=== PATIENT | male | born 1935 | race African-American/Black ===

== ENCOUNTER 2017-08-13 15:09 | Inpatient (IN) | payer MEDICARE, MEDICAID ==
[~2017-08-13] VITALS: Ht 167.6 cm; Wt 84.8 kg
[2017-08-13 16:29] LABS: CHLORIDE 109 mEq/L (98-107)
[2017-08-13 16:30] LABS: HEMATOCRIT. 35.4 % (42.0-52.0); HEMOGLOBIN. 11.6 g/dL (14.0-18.0); MEAN CORPUSCULAR HEMOGLOBIN 27.9 pg (28.0-32.0); MEAN CORPUSCULAR VOLUME 85.1 fL (80.0-94.0); MEAN PLATELET VOLUME 8.2 fl (7.4-10.4); PLATELET 265 x1000/uL (130-400); RED BLOOD CELL COUNT 4.16 mill/uL (4.7-6.1); RED CELL DISTRIBUTION WIDTH 15.4 % (11.6-14.6)
[2017-08-13 17:15] LABS: PLATELET ESTIMATE NORMAL
[2017-08-13] MEDS ORDERED: AMPICILLIN SOD/SULBACTAM NA 3 G in SODIUM CHLORIDE 0.9% 100 ML IV SCH (17:15)
[2017-08-13] MEDS ORDERED: MAGNESIUM HYDROXIDE 400MG/5ML 30ML UDC PO PRN (20:30)
[2017-08-13] MEDS ORDERED: ACETAMINOPHEN 325MG TABLET PO PRN (20:30)
[2017-08-13] MEDS ORDERED: CLONIDINE 0.1MG TABLET PO PRN (20:30)
[2017-08-13] MEDS ORDERED: VANCOMYCIN 1 G PREMIX 200 ML IV SCH (20:30)
[2017-08-13] MEDS ORDERED: DIPHENHYDRAMINE 50MG/ML VIAL IV PRN (20:30)
[2017-08-13] MEDS ORDERED: ONDANSETRON HCL 4MG/2ML VIAL IV PRN (20:30)
[2017-08-13] MEDS ORDERED: MAGNESIUM/ALUMINUM HYDROXIDE/SIMETHICONE 30ML UDC PO PRN (20:30)
[2017-08-13] MEDS ORDERED: TEMAZEPAM 15MG CAPSULE PO PRN (21:00)
[2017-08-13 21:57] VITALS: BP 135/60
[2017-08-13] MEDS ORDERED: PIPERACILLIN/TAZ 3.375G PREMIX 50 ML IV SCH (22:00)
[2017-08-13] MEDS: SODIUM CHLORIDE 0.9% INJ 3ML FLUSH IVF SCH (22:56)
[2017-08-13] MEDS: ENOXAPARIN 40MG/0.4ML SYR SUBCUT SCH (22:56)
[2017-08-13] MEDS ORDERED: VANCOMYCIN 1,750 MG in DEXT 5% WATER 250 ML IV NR (23:00)
[2017-08-14 00:17] VITALS: BP 126/78
[2017-08-14] MEDS ORDERED: HYDROCODONE/ACETAMINOPHEN 5/325MG TABLET PO PRN (01:30)
[2017-08-14 04:18] VITALS: BP 120/43
[2017-08-14] MEDS: SODIUM CHLORIDE 0.9% INJ 3ML FLUSH IVF SCH ×2 (05:27→15:12)
[2017-08-14] MEDS: CEFAZOLIN 500 MG in DEXTROSE 5% WATER 50 ML IV SCH ×2 (07:29→15:12)
[2017-08-14 08:00] VITALS: BP 126/78
[2017-08-14] MEDS: TAMSULOSIN HCL 0.4MG SR CAPSULE PO SCH (08:22)
[2017-08-14] MEDS: AMLODIPINE 10MG TABLET PO SCH (08:22)
[2017-08-14] MEDS: CHOLECALCIFEROL (D3) 1000 UNIT TABLET PO SCH (08:22)
[2017-08-14] MEDS: CARVEDILOL 3.125 MG TABLET PO SCH ×2 (08:23→23:04)
[2017-08-14] MEDS: ASPIRIN 81MG EC TABLET PO SCH (08:23)
[2017-08-14] MEDS: MULTIVITAMINS,THER W-MINERALS TABLET PO SCH (08:23)
[2017-08-14] MEDS ORDERED: PREGABALIN 50 MG CAPSULE PO SCH (09:00)
[2017-08-14 12:00] VITALS: BP 140/45
[2017-08-14 16:00] VITALS: BP 138/57
[2017-08-14] MEDS ORDERED: VANCOMYCIN 1 G PREMIX 200 ML IV SCH (16:00)
[2017-08-14 20:00] VITALS: BP 130/50
[2017-08-14] MEDS ORDERED: ATORVASTATIN CALCIUM 40MG TABLET PO SCH (21:00)
[2017-08-14] MEDS ORDERED: FAMOTIDINE 20MG TABLET PO SCH (21:00)
[2017-08-14] MEDS: PREGABALIN 50 MG CAPSULE PO SCH (23:03)
[2017-08-14] MEDS: ENOXAPARIN 40MG/0.4ML SYR SUBCUT SCH (23:05)
[2017-08-15] VITALS: BP 107/43
[2017-08-15 04:00] VITALS: BP_SYST 118; BP_SYST 130; BP_DIAS 37; BP_DIAS 44
[2017-08-15] MEDS: SODIUM CHLORIDE 0.9% INJ 3ML FLUSH IVF SCH (06:19)
[2017-08-15] MEDS: PREGABALIN 50 MG CAPSULE PO SCH ×2 (06:19→13:51)
[2017-08-15 08:00] VITALS: BP 145/62
[2017-08-15] MEDS: TAMSULOSIN HCL 0.4MG SR CAPSULE PO SCH (10:22)
[2017-08-15] MEDS: CHOLECALCIFEROL (D3) 1000 UNIT TABLET PO SCH (10:22)
[2017-08-15] MEDS: CARVEDILOL 3.125 MG TABLET PO SCH (10:23)
[2017-08-15] MEDS: ASPIRIN 81MG EC TABLET PO SCH (10:23)
[2017-08-15] MEDS: MULTIVITAMINS,THER W-MINERALS TABLET PO SCH (10:23)
[2017-08-15] MEDS: AMLODIPINE 10MG TABLET PO SCH (10:23)
[2017-08-15 12:00] VITALS: BP 142/56
== END 2017-08-15 18:29 | DRG 637 ==
LOC: ER 15:09 → 6EST 17:20 → ENRESERV 19:06
PROVIDERS: ADMIT Internal Medicine; ATTEND Internal Medicine
DX: E11.621 Type 2 diabetes mellitus with foot ulcer (principal); E43 Unspecified severe protein-calorie malnutrition; I13.0 Hypertensive heart and chronic kidney disease with heart failure and stage 1 through stage 4 chronic kidney disease, or unspecified chronic kidney disease; L97.429 Non-pressure chronic ulcer of left heel and midfoot with unspecified severity; E11.22 Type 2 diabetes mellitus with diabetic chronic kidney disease; E11.40 Type 2 diabetes mellitus with diabetic neuropathy, unspecified; I25.10 Atherosclerotic heart disease of native coronary artery without angina pectoris; I50.9 Heart failure, unspecified; K21.9 Gastro-esophageal reflux disease without esophagitis; E11.51 Type 2 diabetes mellitus with diabetic peripheral angiopathy without gangrene; M77.30 Calcaneal spur, unspecified foot; J44.9 Chronic obstructive pulmonary disease, unspecified; N18.9 Chronic kidney disease, unspecified; G30.9 Alzheimer's disease, unspecified; F02.80 Dementia in other diseases classified elsewhere, unspecified severity, without behavioral disturbance, psychotic disturbance, mood disturbance, and anxiety; Z86.718 Personal history of other venous thrombosis and embolism; Z86.73 Personal history of transient ischemic attack (TIA), and cerebral infarction without residual deficits; Z68.30 Body mass index [BMI] 30.0-30.9, adult
CPT/HCPCS: 36415; 73630; 80053; 83605; 85025; 87040; 93005; 93923; J0295; J0690; J1650; J2543; J3370; J7040; J7050; J7060

== ENCOUNTER 2018-01-18 16:02 | Inpatient (IN) | payer MEDICARE, MEDICAID ==
[~2018-01-18] VITALS: Ht 175.3 cm; Wt 86.6 kg
[~2018-01-18 16:02] MED LIST: ACET-2178 PO; AMLO10TA4 PO; ASPI-1158 PO; ATOR80TA PO; CHOL100044 PO; CIME800T PO; COR3 PO; DIPH25CA83 PO; ENOX40DI8 SQ; ESCI20TA PO; FAMO20TA8 PO; HYDR-4001 PO; MAG30ORA PO; MELA3TAB PO; MOM PO; MULT-230 PO; PREG100C PO; TAMS-11 PO
[2018-01-18] MEDS ORDERED: KETOROLAC 30MG/ML VIAL IV STA (16:26)
[2018-01-18 16:57] LABS: BG BASE EXCESS -2.7 mmol/L (-2.0-2.0); BG CARBOXYHEMOGLOBIN 1.4 % (0.5-1.5); BG DEOXYHEMOGLOBIN 11.2 % (0.0-5.0); BG FRACTION INSPIRED OXYGEN 36; BG HCO3 ACT 20.3 mmol/L (22.0-26.0); BG METHEMOGLOBIN 0.1 % (0.0-1.5); BG OXYGEN SATURATION 88.6 % (92.0-98.5); BG OXYHEMOGLOBIN 87.3 % (94.0-97.0); BG PCO2 28.4 mmHg (35.0-45.0); BG PH 7.473 (7.350-7.450); BG PO2 58.4 mmHg (75.0-100.0); BG SAMPLE SITE RIGHT BRACHIAL; BG TOTAL HEMOGLOBIN 8.2 g/dL (12.0-18.0); BG VENT MODE NASAL CANNULA
[2018-01-18 17:09] LABS: HEMATOCRIT. 24.7 % (42.0-52.0); HEMOGLOBIN. 8.2 g/dL (14.0-18.0); MEAN CORPUSCULAR HEMOGLOBIN 29.3 pg (28.0-32.0); MEAN CORPUSCULAR VOLUME 88.8 fL (80.0-94.0); MEAN PLATELET VOLUME 7.9 fl (7.4-10.4); PLATELET 461 x1000/uL (130-400); RED BLOOD CELL COUNT 2.79 mill/uL (4.7-6.1); RED CELL DISTRIBUTION WIDTH 16.4 % (11.6-14.6)
[2018-01-18 17:16] LABS: CHLORIDE 107 mEq/L (98-107)
[2018-01-18 18:01] LABS: NUCLEATED RED BLOOD CELLS 2 /100 WBC; PLATELET ESTIMATE INCREASED
[2018-01-18] MEDS ORDERED: ENOXAPARIN 60MG/0.6ML SYR SUBCUT ONE (18:15)
[2018-01-18 22:30] VITALS: BP 100/60
[2018-01-19] VITALS (11 sets, daily range): BP systolic 101–115; BP diastolic 47–75
[2018-01-19] MEDS ORDERED: DOCU-138 PO (06:09)
[2018-01-19] MEDS ORDERED: ZINC220T PO (06:09)
[2018-01-19] MEDS ORDERED: LORA2TAB95 PO (06:09)
[2018-01-19] MEDS ORDERED: ONDA4TAB5 PO (06:09)
[2018-01-19] MEDS ORDERED: CLON0.1T PO (06:09)
[2018-01-19] MEDS ORDERED: DORZ10DR12 EACHEYE (06:09)
[2018-01-19 07:20] LABS: BASOPHILS % 0.6 % (0.0-2.0); EOSINOPHILS % 1.8 % (0.0-5.0); HEMATOCRIT. 23.3 % (42.0-52.0); HEMOGLOBIN. 7.6 g/dL (14.0-18.0); LYMPHOCYTES % 25.6 % (20.0-50.0); MEAN CORPUSCULAR HEMOGLOBIN 28.8 pg (28.0-32.0); MEAN CORPUSCULAR VOLUME 88.8 fL (80.0-94.0); MONOCYTES % 10.4 % (2.0-8.0); NEUTROPHILS % 61.6 % (40.0-76.0); PLATELET 431 x1000/uL (130-400); RED BLOOD CELL COUNT 2.62 mill/uL (4.7-6.1); RED CELL DISTRIBUTION WIDTH 16.4 % (11.6-14.6)
[2018-01-19 09:01] LABS: CREATINE KINASE MB FRACTION 22.5 ng/mL (0.5-3.6)
[2018-01-19 14:43] LABS: CREATINE KINASE MB FRACTION 21.9 ng/mL (0.5-3.6)
[2018-01-19] MEDS ORDERED: IPRATROPIUM/ALBUTEROL 0.5-3(2.5)MG/3ML NEB HHN PRN (17:45)
[2018-01-19] MEDS ORDERED: FUROSEMIDE 40MG/4ML VIAL IVP NR (18:00)
[2018-01-19] MEDS ORDERED: IPRATROPIUM/ALBUTEROL 0.5-3(2.5)MG/3ML NEB INH PRN (20:45)
[2018-01-19] MEDS ORDERED: ONDANSETRON HCL 4MG/2ML INJ IV PRN (20:45)
[2018-01-19] MEDS ORDERED: ACETAMINOPHEN 325MG TABLET PO PRN (20:45)
[2018-01-19 22:21] LABS: CLARITY URINE CLOUDY (CLEAR); COLOR URINE YELLOW (YELLOW); KETONES URINE TRACE (NEGATIVE); LEUKOCYTE ESTERASE URINE 3+ (NEGATIVE); NITRITE URINE POSITIVE (NEGATIVE); OCCULT BLOOD URINE NEGATIVE (NEGATIVE); PROTEIN URINE NEGATIVE (NEGATIVE); SPECIFIC GRAVITY URINE 1.017 (1.005-1.030); UROBILINOGEN URINE 0.2 E.U./dL (0.2-1.0)
[2018-01-19 22:36] LABS: *AMPHETAMINES SCREEN URINE NEGATIVE (NEGATIVE)
[2018-01-19 22:38] LABS: *BARBITURATES SCREEN URINE NEGATIVE (NEGATIVE); *BENZODIAZEPINES SCREEN URINE NEGATIVE (NEGATIVE); *COCAINE SCREEN URINE NEGATIVE (NEGATIVE); CANNABINOID URINE SCREEN NEGATIVE (NEGATIVE); METHADONE URINE SCREEN NEGATIVE (NEGATIVE); OPIATES URINE SCREEN NEGATIVE (NEGATIVE); PHENCYCLIDINE URINE SCREEN NEGATIVE (NEGATIVE)
[2018-01-19] MEDS: HYDROCODONE/ACETAMINOPHEN 5/325MG TABLET PO PRN (23:35)
[2018-01-19] MEDS: LEVOFLOXACIN 750MG PREMIX 150 ML IV SCH (23:36)
[2018-01-19] MEDS: PREGABALIN 75MG CAPSULE PO SCH (23:36)
[2018-01-19] MEDS: TAMSULOSIN HCL 0.4MG SR CAPSULE PO SCH (23:39)
[2018-01-20] VITALS (11 sets, daily range): BP systolic 97–127; BP diastolic 52–76
[2018-01-20 00:04] LABS: INR 1.1; PROTHROMBIN TIME 11.3 sec (9.1-11.1)
[2018-01-20] MEDS: IPRATROPIUM/ALBUTEROL 0.5-3(2.5)MG/3ML NEB HHN SCH ×4 (00:36→20:59)
[2018-01-20 07:41] LABS: CHLORIDE 110 mEq/L (98-107)
[2018-01-20 07:55] LABS: CREATINE KINASE 202 IU/L (39-308)
[2018-01-20 07:58] LABS: BASOPHILS % 0.5 % (0.0-2.0); CREATINE KINASE MB FRACTION 19.1 ng/mL (0.5-3.6); EOSINOPHILS % 4.2 % (0.0-5.0); HEMATOCRIT. 23.4 % (42.0-52.0); HEMOGLOBIN. 7.6 g/dL (14.0-18.0); LYMPHOCYTES % 20.3 % (20.0-50.0); MEAN CORPUSCULAR HEMOGLOBIN 28.6 pg (28.0-32.0); MEAN CORPUSCULAR VOLUME 88.8 fL (80.0-94.0); MEAN PLATELET VOLUME 7.8 fl (7.4-10.4); MONOCYTES % 9.5 % (2.0-8.0); NEUTROPHILS % 65.5 % (40.0-76.0); PLATELET 430 x1000/uL (130-400); RED BLOOD CELL COUNT 2.64 mill/uL (4.7-6.1); RED CELL DISTRIBUTION WIDTH 16.3 % (11.6-14.6)
[2018-01-20] MEDS ORDERED: FUROSEMIDE 40MG/4ML VIAL IVP SCH (11:30)
[2018-01-20] MEDS ORDERED: REGADENOSON 0.4 MG/5 ML IV ONE (14:16)
[2018-01-20] MEDS: TAMSULOSIN HCL 0.4MG SR CAPSULE PO SCH (15:26)
[2018-01-20] MEDS: ASPIRIN 81MG TABLET PO SCH (15:26)
[2018-01-20] MEDS: PREGABALIN 75MG CAPSULE PO SCH ×2 (15:26→21:44)
[2018-01-20] MEDS: ATORVASTATIN CALCIUM 40MG TABLET PO SCH (21:44)
[2018-01-21] VITALS (14 sets, daily range): BP systolic 93–130; BP diastolic 50–80
[2018-01-21] MEDS: IPRATROPIUM/ALBUTEROL 0.5-3(2.5)MG/3ML NEB HHN SCH ×4 (01:30→20:43)
[2018-01-21 07:42] LABS: BASOPHILS % 0.5 % (0.0-2.0); EOSINOPHILS % 5.6 % (0.0-5.0); HEMATOCRIT. 22.9 % (42.0-52.0); HEMOGLOBIN. 7.4 g/dL (14.0-18.0); MEAN CORPUSCULAR HEMOGLOBIN 28.5 pg (28.0-32.0); MEAN CORPUSCULAR VOLUME 88.2 fL (80.0-94.0); MONOCYTES % 7.6 % (2.0-8.0); NEUTROPHILS % 68.3 % (40.0-76.0); PLATELET 413 x1000/uL (130-400); RED CELL DISTRIBUTION WIDTH 16.5 % (11.6-14.6)
[2018-01-21] MEDS: PREGABALIN 75MG CAPSULE PO SCH ×2 (08:08→20:30)
[2018-01-21] MEDS: ASPIRIN 81MG TABLET PO SCH (08:08)
[2018-01-21] MEDS: FERROUS SULFATE 325MG TABLET PO SCH ×3 (08:08→18:07)
[2018-01-21] MEDS: PANTOPRAZOLE SODIUM 40 MG/VIAL IV SCH (08:08)
[2018-01-21] MEDS: TAMSULOSIN HCL 0.4MG SR CAPSULE PO SCH (08:09)
[2018-01-21 08:46] LABS: CHLORIDE 109 mEq/L (98-107)
[2018-01-21] MEDS ORDERED: IRON SUCROSE COMPLEX 100 MG/5 ML ML IV SCH (10:15)
[2018-01-21] MEDS ORDERED: SODIUM BICARBONATE 4% (2.4MEQ) 5ML VIAL IV ONE (15:41)
[2018-01-21] MEDS ORDERED: LIDOCAINE HCL 1% 20ML VIAL (Pyxis) INJ ONE (15:42)
[2018-01-21] MEDS ORDERED: IOHEXOL-300 100 ML BOTTLE ONE (15:42)
[2018-01-21] MEDS: ATORVASTATIN CALCIUM 40MG TABLET PO SCH (20:30)
[2018-01-21] MEDS: LEVOFLOXACIN 750MG PREMIX 150 ML IV SCH (20:31)
[2018-01-22] VITALS (9 sets, daily range): BP systolic 97–131; BP diastolic 58–65
[2018-01-22] MEDS: IPRATROPIUM/ALBUTEROL 0.5-3(2.5)MG/3ML NEB HHN SCH ×4 (01:43→20:43)
[2018-01-22] MEDS: HYDROCODONE/ACETAMINOPHEN 5/325MG TABLET PO PRN ×2 (02:45→21:17)
[2018-01-22 07:24] LABS: CHLORIDE 108 mEq/L (98-107)
[2018-01-22 07:32] LABS: BASOPHILS % 0.2 % (0.0-2.0); EOSINOPHILS % 3.1 % (0.0-5.0); HEMATOCRIT. 27.5 % (42.0-52.0); HEMOGLOBIN. 8.9 g/dL (14.0-18.0); LYMPHOCYTES % 9.5 % (20.0-50.0); MEAN CORPUSCULAR HEMOGLOBIN 28.6 pg (28.0-32.0); MEAN CORPUSCULAR VOLUME 88.5 fL (80.0-94.0); MONOCYTES % 8.2 % (2.0-8.0); PLATELET 413 x1000/uL (130-400); RED BLOOD CELL COUNT 3.11 mill/uL (4.7-6.1); RED CELL DISTRIBUTION WIDTH 16.4 % (11.6-14.6)
[2018-01-22] MEDS: IRON SUCROSE COMPLEX 100 MG/5 ML ML IV SCH (08:24)
[2018-01-22] MEDS: PANTOPRAZOLE SODIUM 40 MG/VIAL IV SCH (08:24)
[2018-01-22] MEDS: FERROUS SULFATE 325MG TABLET PO SCH ×3 (08:26→17:20)
[2018-01-22] MEDS: TAMSULOSIN HCL 0.4MG SR CAPSULE PO SCH (08:27)
[2018-01-22] MEDS: ASPIRIN 81MG TABLET PO SCH (08:27)
[2018-01-22] MEDS: PREGABALIN 75MG CAPSULE PO SCH ×2 (08:27→21:17)
[2018-01-22] MEDS: ATORVASTATIN CALCIUM 40MG TABLET PO SCH (21:17)
[2018-01-23] VITALS (7 sets, daily range): BP systolic 94–116; BP diastolic 46–66
[2018-01-23] MEDS: IPRATROPIUM/ALBUTEROL 0.5-3(2.5)MG/3ML NEB HHN SCH ×3 (01:42→11:41)
[2018-01-23 05:42] LABS: HEMATOCRIT 24.7 % (42.0-52.0); HEMOGLOBIN 8.1 g/dL (14.0-18.0); MEAN CORPUSCULAR HEMOGLOBIN 29.1 pg (28.0-32.0); MEAN CORPUSCULAR VOLUME 88.9 fL (80.0-94.0); PLATELET 354 x1000/uL (130-400); RED BLOOD CELL COUNT 2.77 mill/uL (4.7-6.1); RED CELL DISTRIBUTION WIDTH 16.8 % (11.6-14.6)
[2018-01-23 05:52] LABS: TOTAL IRON BINDING CAPACITY 289 ug/dL (250-450)
[2018-01-23] MEDS: PANTOPRAZOLE SODIUM 40 MG/VIAL IV SCH (09:00)
[2018-01-23] MEDS: FERROUS SULFATE 325MG TABLET PO SCH (09:06)
[2018-01-23] MEDS: TAMSULOSIN HCL 0.4MG SR CAPSULE PO SCH (09:07)
[2018-01-23] MEDS: ASPIRIN 81MG TABLET PO SCH (09:07)
[2018-01-23] MEDS: PREGABALIN 75MG CAPSULE PO SCH (09:07)
[2018-01-23] MEDS: IRON SUCROSE COMPLEX 100 MG/5 ML ML IV SCH (09:08)
== END 2018-01-23 16:49 | DRG 252 ==
LOC: ER 16:02 → 3WST 18:35 → ENRESERV 20:55
PROVIDERS: ADMIT Internal Medicine; ATTEND Internal Medicine
PROC: 30233N1 Transfusion of Nonautologous Red Blood Cells into Peripheral Vein, Percutaneous Approach (ICD-10-PCS; principal; 2018-01-21)
PROC: 06H03DZ Insertion of Intraluminal Device into Inferior Vena Cava, Percutaneous Approach (ICD-10-PCS; 2018-01-21)
PROC: B549ZZZ Ultrasonography of Inferior Vena Cava (ICD-10-PCS; 2018-01-21)
PROC: B5191ZZ Fluoroscopy of Inferior Vena Cava using Low Osmolar Contrast (ICD-10-PCS; 2018-01-21)
DX: I21.4 Non-ST elevation (NSTEMI) myocardial infarction (principal); J96.01 Acute respiratory failure with hypoxia; J18.9 Pneumonia, unspecified organism; E44.0 Moderate protein-calorie malnutrition; E87.2 Acidosis; I69.354 Hemiplegia and hemiparesis following cerebral infarction affecting left non-dominant side; I82.502 Chronic embolism and thrombosis of unspecified deep veins of left lower extremity; J90 Pleural effusion, not elsewhere classified; K92.2 Gastrointestinal hemorrhage, unspecified; D50.9 Iron deficiency anemia, unspecified; E11.22 Type 2 diabetes mellitus with diabetic chronic kidney disease; E11.51 Type 2 diabetes mellitus with diabetic peripheral angiopathy without gangrene; E78.00 Pure hypercholesterolemia, unspecified; E78.5 Hyperlipidemia, unspecified; F03.90 Unspecified dementia, unspecified severity, without behavioral disturbance, psychotic disturbance, mood disturbance, and anxiety; F41.9 Anxiety disorder, unspecified; H40.9 Unspecified glaucoma; R91.8 Other nonspecific abnormal finding of lung field; D47.3 Essential (hemorrhagic) thrombocythemia; N18.3 Chronic kidney disease, stage 3 (moderate); R82.71 Bacteriuria; I70.0 Atherosclerosis of aorta; H91.90 Unspecified hearing loss, unspecified ear; N40.0 Benign prostatic hyperplasia without lower urinary tract symptoms; I12.9 Hypertensive chronic kidney disease with stage 1 through stage 4 chronic kidney disease, or unspecified chronic kidney disease; I34.0 Nonrheumatic mitral (valve) insufficiency; J44.9 Chronic obstructive pulmonary disease, unspecified; K21.9 Gastro-esophageal reflux disease without esophagitis; Z85.118 Personal history of other malignant neoplasm of bronchus and lung; Z88.0 Allergy status to penicillin; Z79.82 Long term (current) use of aspirin; Z79.899 Other long term (current) drug therapy; Z68.28 Body mass index [BMI] 28.0-28.9, adult
CPT/HCPCS: 36415; 36600; 37191; 71045; 76700; 78452; 80048; 80061; 80305; 82375; 82550; 82553; 82728; 82805; 82962; 83540; 83550; 83605; 83735; 83880; 84443; 84484; 85027; 85044; 86850; 86900; 86920; 87804; 93005; 93017; 93306; 93970; 94640; 96372; 96374; 99285; A9500; C1769; C1880; C9113; J1644; J1650; J1885; J1940; J1956; J2785; J3490; J7050; J7620; P9016; Q9967

== ENCOUNTER 2018-01-27 13:43 | Inpatient (IN) | payer MEDICARE, MEDICAID ==
[~2018-01-27] VITALS: Ht 177.8 cm; Wt 88.0 kg
[~2018-01-27 13:43] MED LIST changes: +CLON0.1T PO; +DOCU-138 PO; +DORZ10DR12 EACHEYE; +LORA2TAB95 PO; +ONDA4TAB5 PO; +ZINC220T PO
[2018-01-27] MEDS ORDERED: SODIUM CHLORIDE 0.9% 1000ML BAG (SEPSIS BOLUS) IV ONE (14:45)
[2018-01-27 16:07] LABS: BASOPHILS % 0.1 % (0.0-2.0); EOSINOPHILS % 1.3 % (0.0-5.0); HEMATOCRIT. 30.6 % (42.0-52.0); HEMOGLOBIN. 9.7 g/dL (14.0-18.0); LYMPHOCYTES % 7.7 % (20.0-50.0); MEAN CORPUSCULAR HEMOGLOBIN 28.2 pg (28.0-32.0); MEAN CORPUSCULAR VOLUME 89.2 fL (80.0-94.0); MEAN PLATELET VOLUME 8.1 fl (7.4-10.4); MONOCYTES % 7.4 % (2.0-8.0); NEUTROPHILS % 83.5 % (40.0-76.0); PLATELET 375 x1000/uL (130-400); RED BLOOD CELL COUNT 3.43 mill/uL (4.7-6.1); RED CELL DISTRIBUTION WIDTH 18.1 % (11.6-14.6)
[2018-01-27 16:13] LABS: INR 1.1; PROTHROMBIN TIME 11.2 sec (9.1-11.1)
[2018-01-27 16:14] LABS: CHLORIDE 107 mEq/L (98-107)
[2018-01-27] MEDS ORDERED: LEVOFLOXACIN 750MG PREMIX 150 ML IV ONE (17:00)
[2018-01-27 17:26] LABS: CLARITY URINE TURBID (CLEAR); COLOR URINE YELLOW (YELLOW); KETONES URINE NEGATIVE (NEGATIVE); LEUKOCYTE ESTERASE URINE 3+ (NEGATIVE); NITRITE URINE POSITIVE (NEGATIVE); OCCULT BLOOD URINE TRACE (NEGATIVE); PROTEIN URINE NEGATIVE (NEGATIVE); SPECIFIC GRAVITY URINE 1.012 (1.005-1.030)
[2018-01-27] MEDS ORDERED: ACETAMINOPHEN 325MG TABLET PO PRN (22:15)
[2018-01-27] MEDS ORDERED: CLONIDINE 0.1MG TABLET PO PRN (23:46)
[2018-01-28] VITALS (16 sets, daily range): BP systolic 92–142; BP diastolic 36–86
[2018-01-28] MEDS: ENOXAPARIN 100MG/ML SYR SUBCUT SCH ×2 (04:00→17:07)
[2018-01-28 11:32] LABS: BASOPHILS % 0.1 % (0.0-2.0); EOSINOPHILS % 1.8 % (0.0-5.0); HEMATOCRIT. 26.6 % (42.0-52.0); HEMOGLOBIN. 8.3 g/dL (14.0-18.0); LYMPHOCYTES % 11.4 % (20.0-50.0); MEAN CORPUSCULAR HEMOGLOBIN 28.5 pg (28.0-32.0); MEAN CORPUSCULAR VOLUME 91.5 fL (80.0-94.0); MEAN PLATELET VOLUME 8.6 fl (7.4-10.4); MONOCYTES % 7.1 % (2.0-8.0); NEUTROPHILS % 79.6 % (40.0-76.0); PLATELET 253 x1000/uL (130-400)
[2018-01-28 12:04] LABS: CHLORIDE 113 mEq/L (98-107)
[2018-01-28] MEDS ORDERED: CLONIDINE 0.1MG TABLET PO SCH (15:15)
[2018-01-28] MEDS: DORZOLAM/TIMOLOL 2.23/0.68% OPHTH DROPS 10ML EACHEYE SCH (17:08)
[2018-01-28] MEDS: DEXT 5%/0.9% NACL 1,000 ML IV SCH (17:08)
[2018-01-28] MEDS: ATORVASTATIN CALCIUM 40MG TABLET PO SCH (21:00)
[2018-01-28] MEDS: TAMSULOSIN HCL 0.4MG SR CAPSULE PO SCH (21:00)
[2018-01-28] MEDS: MEROPENEM 1,000 MG in SODIUM CHLORIDE 0.9% 100 ML IV SCH (22:00)
[2018-01-28] MEDS: VANCOMYCIN 1500MG in DEXTROSE 5% WATER 250ML IV NR (22:39)
[2018-01-29] VITALS (11 sets, daily range): BP systolic 88–127; BP diastolic 41–94
[2018-01-29] MEDS: ENOXAPARIN 100MG/ML SYR SUBCUT SCH ×2 (04:27→16:47)
[2018-01-29] MEDS: DEXT 5%/0.9% NACL 1,000 ML IV SCH ×2 (04:33→21:00)
[2018-01-29] MEDS: MEROPENEM 1,000 MG in SODIUM CHLORIDE 0.9% 100 ML IV SCH ×2 (08:24→20:55)
[2018-01-29] MEDS: DORZOLAM/TIMOLOL 2.23/0.68% OPHTH DROPS 10ML EACHEYE SCH ×2 (08:25→16:47)
[2018-01-29 12:11] LABS: CREATINE KINASE MB FRACTION 8.9 ng/mL (0.5-3.6)
[2018-01-29 12:17] LABS: HEMATOCRIT. 26.6 % (42.0-52.0); HEMOGLOBIN. 8.3 g/dL (14.0-18.0); MEAN CORPUSCULAR HEMOGLOBIN 28.7 pg (28.0-32.0); MEAN CORPUSCULAR VOLUME 92.1 fL (80.0-94.0); MEAN PLATELET VOLUME 8.9 fl (7.4-10.4); PLATELET 218 x1000/uL (130-400); RED BLOOD CELL COUNT 2.89 mill/uL (4.7-6.1); RED CELL DISTRIBUTION WIDTH 18.3 % (11.6-14.6)
[2018-01-29 12:43] LABS: CHLORIDE 117 mEq/L (98-107)
[2018-01-29] MEDS: ASPIRIN 81MG TABLET PO SCH (13:21)
[2018-01-29] MEDS: VANCOMYCIN 1 G PREMIX 200 ML IV SCH (13:22)
[2018-01-29] MEDS ORDERED: LEVOFLOXACIN 750MG PREMIX 150 ML IV SCH (17:00)
[2018-01-29] MEDS: ATORVASTATIN CALCIUM 40MG TABLET PO SCH (20:55)
[2018-01-29] MEDS: TAMSULOSIN HCL 0.4MG SR CAPSULE PO SCH (21:00)
[2018-01-29] MEDS: VANCOMYCIN 1500MG in DEXTROSE 5% WATER 250ML IV NR (21:52)
[2018-01-30] VITALS (13 sets, daily range): BP systolic 104–143; BP diastolic 39–68
[2018-01-30 02:25] LABS: PLATELET ESTIMATE NORMAL
[2018-01-30] MEDS: ENOXAPARIN 100MG/ML SYR SUBCUT SCH ×2 (04:29→16:47)
[2018-01-30] MEDS: VANCOMYCIN 1 G PREMIX 200 ML IV SCH (08:17)
[2018-01-30] MEDS: DORZOLAM/TIMOLOL 2.23/0.68% OPHTH DROPS 10ML EACHEYE SCH ×2 (08:17→16:50)
[2018-01-30] MEDS: ASPIRIN 81MG TABLET PO SCH (08:18)
[2018-01-30] MEDS: MEROPENEM 1,000 MG in SODIUM CHLORIDE 0.9% 100 ML IV SCH ×2 (09:54→22:16)
[2018-01-30 11:28] LABS: BASOPHILS % 0.2 % (0.0-2.0); EOSINOPHILS % 1.5 % (0.0-5.0); HEMATOCRIT. 24.9 % (42.0-52.0); LYMPHOCYTES % 15.1 % (20.0-50.0); MEAN CORPUSCULAR HEMOGLOBIN 28.7 pg (28.0-32.0); MEAN CORPUSCULAR VOLUME 90.2 fL (80.0-94.0); MEAN PLATELET VOLUME 8.7 fl (7.4-10.4); NEUTROPHILS % 76.2 % (40.0-76.0); PLATELET 214 x1000/uL (130-400); RED BLOOD CELL COUNT 2.77 mill/uL (4.7-6.1); RED CELL DISTRIBUTION WIDTH 18.1 % (11.6-14.6)
[2018-01-30 11:58] LABS: CHLORIDE 118 mEq/L (98-107)
[2018-01-30] MEDS: ATORVASTATIN CALCIUM 40MG TABLET PO SCH (22:16)
[2018-01-30] MEDS: TAMSULOSIN HCL 0.4MG SR CAPSULE PO SCH (22:16)
[2018-01-31] VITALS (13 sets, daily range): BP systolic 115–137; BP diastolic 45–92
[2018-01-31] MEDS: DEXT 5%/0.9% NACL 1,000 ML IV SCH ×2 (04:27→21:59)
[2018-01-31] MEDS: ENOXAPARIN 100MG/ML SYR SUBCUT SCH ×2 (04:27→17:01)
[2018-01-31] MEDS: ACETYLCYSTEINE 100MG/ML 10% VIAL 4ML INH SCH (07:37)
[2018-01-31] MEDS: MEROPENEM 1,000 MG in SODIUM CHLORIDE 0.9% 100 ML IV SCH ×2 (08:13→21:59)
[2018-01-31] MEDS: ASPIRIN 81MG TABLET PO SCH (08:14)
[2018-01-31] MEDS: DORZOLAM/TIMOLOL 2.23/0.68% OPHTH DROPS 10ML EACHEYE SCH ×2 (08:14→17:05)
[2018-01-31 17:03] LABS: INR 1.1; PARTIAL THROMBOPLASTIN TIME 44.8 sec (23.4-31.0); PROTHROMBIN TIME 11.4 sec (9.1-11.1)
[2018-01-31] MEDS: BLOOD SUGAR DIAGNOSTIC STRIP TEST SCH (17:18)
[2018-01-31] MEDS: IPRATROPIUM/ALBUTEROL 0.5-3(2.5)MG/3ML NEB HHN SCH (20:40)
[2018-01-31] MEDS: ATORVASTATIN CALCIUM 40MG TABLET PO SCH (22:00)
[2018-01-31] MEDS: TAMSULOSIN HCL 0.4MG SR CAPSULE PO SCH (22:00)
[2018-02-01] VITALS (12 sets, daily range): BP systolic 96–152; BP diastolic 24–100
[2018-02-01] MEDS: IPRATROPIUM/ALBUTEROL 0.5-3(2.5)MG/3ML NEB HHN SCH ×5 (00:45→20:29)
[2018-02-01] MEDS: ENOXAPARIN 100MG/ML SYR SUBCUT SCH ×2 (04:38→16:00)
[2018-02-01] MEDS: ASPIRIN 81MG TABLET PO SCH (09:00)
[2018-02-01] MEDS: DORZOLAM/TIMOLOL 2.23/0.68% OPHTH DROPS 10ML EACHEYE SCH ×2 (09:00→17:00)
[2018-02-01] MEDS: BLOOD SUGAR DIAGNOSTIC STRIP TEST SCH ×2 (09:21→17:00)
[2018-02-01] MEDS: PANTOPRAZOLE SODIUM 40 MG/VIAL IV SCH (09:24)
[2018-02-01] MEDS: MEROPENEM 1,000 MG in SODIUM CHLORIDE 0.9% 100 ML IV SCH ×2 (09:56→21:13)
[2018-02-01] MEDS: DEXT 5%/0.9% NACL 1,000 ML IV SCH (14:24)
[2018-02-01] MEDS: ACETYLCYSTEINE 100MG/ML 10% VIAL 4ML INH SCH (15:22)
[2018-02-01 15:32] LABS: BASOPHILS % 0.5 % (0.0-2.0); EOSINOPHILS % 3.5 % (0.0-5.0); HEMATOCRIT. 27.1 % (42.0-52.0); HEMOGLOBIN. 8.3 g/dL (14.0-18.0); LYMPHOCYTES % 20.9 % (20.0-50.0); MEAN CORPUSCULAR HEMOGLOBIN 27.9 pg (28.0-32.0); MEAN CORPUSCULAR VOLUME 90.4 fL (80.0-94.0); MEAN PLATELET VOLUME 9.6 fl (7.4-10.4); MONOCYTES % 9.1 % (2.0-8.0); PLATELET 211 x1000/uL (130-400); RED CELL DISTRIBUTION WIDTH 18.1 % (11.6-14.6)
[2018-02-01 16:52] LABS: T4 FREE 1.34 ng/dL (0.76-1.46)
[2018-02-01] MEDS: ATORVASTATIN CALCIUM 40MG TABLET PO SCH ×2 (21:00→21:13)
[2018-02-01] MEDS: TAMSULOSIN HCL 0.4MG SR CAPSULE PO SCH ×2 (21:00→21:14)
[2018-02-02] VITALS (12 sets, daily range): BP systolic 105–145; BP diastolic 35–92
[2018-02-02] MEDS: IPRATROPIUM/ALBUTEROL 0.5-3(2.5)MG/3ML NEB HHN SCH ×8 (01:02→23:55)
[2018-02-02] MEDS: ACETYLCYSTEINE 100MG/ML 10% VIAL 4ML INH SCH ×4 (01:02→23:55)
[2018-02-02] MEDS: ENOXAPARIN 100MG/ML SYR SUBCUT SCH (04:00)
[2018-02-02 06:28] LABS: BASOPHILS % 0.3 % (0.0-2.0); EOSINOPHILS % 3.1 % (0.0-5.0); HEMATOCRIT. 26.8 % (42.0-52.0); HEMOGLOBIN. 8.5 g/dL (14.0-18.0); LYMPHOCYTES % 24.2 % (20.0-50.0); MEAN CORPUSCULAR HEMOGLOBIN 28.3 pg (28.0-32.0); MEAN CORPUSCULAR VOLUME 89.7 fL (80.0-94.0); MEAN PLATELET VOLUME 9.4 fl (7.4-10.4); MONOCYTES % 8.5 % (2.0-8.0); NEUTROPHILS % 63.9 % (40.0-76.0); PLATELET 245 x1000/uL (130-400); RED BLOOD CELL COUNT 2.99 mill/uL (4.7-6.1); RED CELL DISTRIBUTION WIDTH 17.7 % (11.6-14.6)
[2018-02-02 07:11] LABS: INR 1.2; PARTIAL THROMBOPLASTIN TIME 37.2 sec (23.4-31.0); PROTHROMBIN TIME 11.7 sec (9.1-11.1)
[2018-02-02] MEDS: MEROPENEM 1,000 MG in SODIUM CHLORIDE 0.9% 100 ML IV SCH ×2 (08:03→21:30)
[2018-02-02] MEDS: PANTOPRAZOLE SODIUM 40 MG/VIAL IV SCH (08:03)
[2018-02-02] MEDS: ASPIRIN 81MG TABLET PO SCH (08:07)
[2018-02-02] MEDS: DORZOLAM/TIMOLOL 2.23/0.68% OPHTH DROPS 10ML EACHEYE SCH ×2 (08:07→16:34)
[2018-02-02] MEDS: BLOOD SUGAR DIAGNOSTIC STRIP TEST SCH ×2 (08:07→16:35)
[2018-02-02] MEDS: DEXT 5%/0.9% NACL 1,000 ML IV SCH (08:25)
[2018-02-02] MEDS ORDERED: MIDAZOLAM HCL 2 MG/2 ML VIAL IV PRN (10:36)
[2018-02-02] MEDS ORDERED: FENTANYL CITRATE/PF 50MCG/ML 2ML VIAL IV PRN (10:37)
[2018-02-02] MEDS ORDERED: MIDAZOLAM HCL 5 MG/5 ML VIAL ONE (10:38)
[2018-02-02] MEDS ORDERED: FENTANYL CITRATE/PF 50MCG/ML 2ML VIAL ONE (10:38)
[2018-02-02] MEDS ORDERED: SIMETHICONE 40 MG/0.6 ML 30ML ONE (15:20)
[2018-02-02] MEDS ORDERED: SODIUM CHLORIDE 0.9% 10ML VIAL ONE (15:20)
[2018-02-02] MEDS: LEVOTHYROXINE SODIUM 25MCG TABLET PO SCH (16:34)
[2018-02-02] MEDS: ATORVASTATIN CALCIUM 40MG TABLET PO SCH (21:30)
[2018-02-02] MEDS: OMEPRAZOLE 20MG CAPSULE EXTENDED RELEASE PO SCH (21:30)
[2018-02-02] MEDS: TAMSULOSIN HCL 0.4MG SR CAPSULE PO SCH (21:31)
[2018-02-03] VITALS (12 sets, daily range): BP systolic 86–126; BP diastolic 37–65
[2018-02-03] MEDS: IPRATROPIUM/ALBUTEROL 0.5-3(2.5)MG/3ML NEB HHN SCH ×3 (04:13→16:13)
[2018-02-03 06:50] LABS: BASOPHILS % 0.2 % (0.0-2.0); HEMATOCRIT. 27.3 % (42.0-52.0); HEMOGLOBIN. 8.5 g/dL (14.0-18.0); LYMPHOCYTES % 19.2 % (20.0-50.0); MEAN CORPUSCULAR HEMOGLOBIN 28.3 pg (28.0-32.0); MEAN CORPUSCULAR VOLUME 90.9 fL (80.0-94.0); MEAN PLATELET VOLUME 9.2 fl (7.4-10.4); MONOCYTES % 7.6 % (2.0-8.0); PLATELET 225 x1000/uL (130-400); RED CELL DISTRIBUTION WIDTH 18.4 % (11.6-14.6)
[2018-02-03 06:58] LABS: CHLORIDE 121 mEq/L (98-107)
[2018-02-03] MEDS: OMEPRAZOLE 20MG CAPSULE EXTENDED RELEASE PO SCH (07:46)
[2018-02-03] MEDS: ASPIRIN 81MG TABLET PO SCH (07:46)
[2018-02-03] MEDS: PANTOPRAZOLE SODIUM 40 MG/VIAL IV SCH (07:46)
[2018-02-03] MEDS: LEVOTHYROXINE SODIUM 25MCG TABLET PO SCH (07:47)
[2018-02-03] MEDS: MEROPENEM 1,000 MG in SODIUM CHLORIDE 0.9% 100 ML IV SCH (07:47)
[2018-02-03] MEDS: BLOOD SUGAR DIAGNOSTIC STRIP TEST SCH ×2 (07:47→17:37)
[2018-02-03] MEDS: DORZOLAM/TIMOLOL 2.23/0.68% OPHTH DROPS 10ML EACHEYE SCH ×2 (07:47→17:39)
[2018-02-03] MEDS: ACETYLCYSTEINE 100MG/ML 10% VIAL 4ML INH SCH ×2 (09:33→16:13)
[2018-02-03 11:14] LABS: TOTAL IRON BINDING CAPACITY 242 ug/dL (250-450)
[2018-02-03] MEDS ORDERED: ENOXAPARIN 40MG/0.4ML SYR SUBCUT SCH (11:30)
[2018-02-03 11:48] LABS: VITAMIN B12 SERUM 1381 pg/mL (211-911)
[2018-02-03] MEDS ORDERED: BUDESONIDE 0.5MG/2ML NEB HHN SCH (16:15)
[2018-02-14] MEDS ORDERED: MUC20 INH (23:45)
[2018-02-14] MEDS ORDERED: IPRA3AMP9 HHN (23:45)
[2018-02-14] MEDS ORDERED: LEVO25TA7 GT (23:45)
[2018-02-14] MEDS ORDERED: OMEP10SU2 GT (23:45)
[2018-02-17] MEDS ORDERED: LEVO500T2 PO (12:26)
== END 2018-02-03 19:47 | DRG 871 ==
LOC: ER 13:43 → 5EST 18:24 → EDBEDREQTM 18:26 → EDBEDREQ 18:26 → ENRESERV 23:58
PROVIDERS: ADMIT Specialist; ATTEND Specialist
PROC: 0DH63UZ Insertion of Feeding Device into Stomach, Percutaneous Approach (ICD-10-PCS; principal; 2018-02-02 10:00)
DX: A41.9 Sepsis, unspecified organism (principal); I21.4 Non-ST elevation (NSTEMI) myocardial infarction; E43 Unspecified severe protein-calorie malnutrition; J69.0 Pneumonitis due to inhalation of food and vomit; J96.00 Acute respiratory failure, unspecified whether with hypoxia or hypercapnia; N39.0 Urinary tract infection, site not specified; C34.31 Malignant neoplasm of lower lobe, right bronchus or lung; E87.0 Hyperosmolality and hypernatremia; E87.2 Acidosis; I13.0 Hypertensive heart and chronic kidney disease with heart failure and stage 1 through stage 4 chronic kidney disease, or unspecified chronic kidney disease; I69.354 Hemiplegia and hemiparesis following cerebral infarction affecting left non-dominant side; J44.0 Chronic obstructive pulmonary disease with (acute) lower respiratory infection; N17.9 Acute kidney failure, unspecified; B96.20 Unspecified Escherichia coli [E. coli] as the cause of diseases classified elsewhere; E11.22 Type 2 diabetes mellitus with diabetic chronic kidney disease; E11.51 Type 2 diabetes mellitus with diabetic peripheral angiopathy without gangrene; E78.00 Pure hypercholesterolemia, unspecified; E78.5 Hyperlipidemia, unspecified; F03.90 Unspecified dementia, unspecified severity, without behavioral disturbance, psychotic disturbance, mood disturbance, and anxiety; H40.9 Unspecified glaucoma; I25.10 Atherosclerotic heart disease of native coronary artery without angina pectoris; I25.2 Old myocardial infarction; I50.9 Heart failure, unspecified; I71.4 Abdominal aortic aneurysm, without rupture; K21.9 Gastro-esophageal reflux disease without esophagitis; R13.12 Dysphagia, oropharyngeal phase; R91.8 Other nonspecific abnormal finding of lung field; I95.9 Hypotension, unspecified; E11.649 Type 2 diabetes mellitus with hypoglycemia without coma; D64.9 Anemia, unspecified; R00.1 Bradycardia, unspecified; K26.9 Duodenal ulcer, unspecified as acute or chronic, without hemorrhage or perforation; K25.9 Gastric ulcer, unspecified as acute or chronic, without hemorrhage or perforation; K76.89 Other specified diseases of liver; N18.9 Chronic kidney disease, unspecified; N40.0 Benign prostatic hyperplasia without lower urinary tract symptoms; Z16.12 Extended spectrum beta lactamase (ESBL) resistance; Z85.118 Personal history of other malignant neoplasm of bronchus and lung; Z86.718 Personal history of other venous thrombosis and embolism; Z93.1 Gastrostomy status; Z68.27 Body mass index [BMI] 27.0-27.9, adult; Z88.0 Allergy status to penicillin; Z88.8 Allergy status to other drugs, medicaments and biological substances; Z79.899 Other long term (current) drug therapy
CPT/HCPCS: 36415; 71045; 80048; 80061; 80076; 80202; 82140; 82550; 82553; 82607; 82962; 83540; 83550; 83605; 83735; 83880; 84134; 84145; 84439; 84443; 84481; 84484; 85044; 87077; 87186; 92610; 93005; 94640; 94667; 96361; 96365; 96366; 97162; 99285; A4216; C1893; C9113; J1650; J1956; J2185; J2250; J3010; J3370; J7030; J7042; J7050; J7060; J7608; J7620; A4315

== ENCOUNTER 2018-02-18 16:56 | Inpatient (IN) | payer MEDICARE, MEDICAID ==
[~2018-02-18] VITALS: Ht 177.8 cm; Wt 80.4 kg
[~2018-02-18 16:56] MED LIST changes: +IPRA3AMP9 HHN; +LEVO25TA7 GT; +LEVO500T2 PO; +MUC20 INH; +OMEP10SU2 GT
[2018-02-18] MEDS ORDERED: SODIUM CHLORIDE 0.9% 1,000 ML IV ONE (18:16)
[2018-02-18] MEDS ORDERED: ACETAMINOPHEN 325MG TABLET PO STA (18:16)
[2018-02-18] MEDS ORDERED: LEVOFLOXACIN 750MG PREMIX 150 ML IV ONE (18:30)
[2018-02-18] MEDS ORDERED: VANCOMYCIN 1 G PREMIX 200 ML IV ONE (18:30)
[2018-02-18 20:09] LABS: CHLORIDE 101 mEq/L (98-107)
[2018-02-18 20:10] LABS: INR 1.3; PROTHROMBIN TIME 13.4 sec (9.1-11.1)
[2018-02-18 20:11] LABS: HEMATOCRIT. 25.7 % (42.0-52.0); HEMOGLOBIN. 8.3 g/dL (14.0-18.0); MEAN CORPUSCULAR HEMOGLOBIN 27.5 pg (28.0-32.0); MEAN CORPUSCULAR VOLUME 85.6 fL (80.0-94.0); MEAN PLATELET VOLUME 7.8 fl (7.4-10.4); PLATELET 448 x1000/uL (130-400); RED BLOOD CELL COUNT 3.01 mill/uL (4.7-6.1); RED CELL DISTRIBUTION WIDTH 18.1 % (11.6-14.6)
[2018-02-18 20:20] LABS: CREATINE KINASE 218 IU/L (39-308)
[2018-02-18] MEDS ORDERED: ASPIRIN 300MG SUPP PR ONE (20:30)
[2018-02-18 21:04] LABS: NUCLEATED RED BLOOD CELLS 1 /100 WBC; PLATELET ESTIMATE INCREASED
[2018-02-19] VITALS (9 sets, daily range): BP systolic 105–130; BP diastolic 46–76
[2018-02-19] MEDS ORDERED: CLONIDINE 0.1MG TABLET PO PRN
[2018-02-19] MEDS ORDERED: ONDANSETRON HCL 4MG/2ML INJ IV PRN
[2018-02-19] MEDS ORDERED: ACETAMINOPHEN 325MG TABLET PO PRN
[2018-02-19] MEDS ORDERED: NA PHOS,M-B/NA PHOS,DI-BA ENEMA 118ML PR PRN
[2018-02-19] MEDS ORDERED: DIPHENHYDRAMINE 50MG/ML VIAL IV PRN
[2018-02-19] MEDS ORDERED: ACETAMINOPHEN 650MG/20.3ML UDC GT PRN
[2018-02-19] MEDS ORDERED: DOCUSATE SODIUM 100MG CAPSULE PO PRN
[2018-02-19] MEDS ORDERED: MAGNESIUM/ALUMINUM HYDROXIDE/SIMETHICONE 30ML UDC PO PRN
[2018-02-19] MEDS ORDERED: IPRATROPIUM/ALBUTEROL 0.5-3(2.5)MG/3ML NEB INH PRN
[2018-02-19] MEDS ORDERED: GUAIFENESIN 200MG/10ML SUGAR FREE UDC PO PRN
[2018-02-19] MEDS ORDERED: ACETAMINOPHEN 650MG SUPP PR PRN
[2018-02-19 07:40] LABS: CHLORIDE 102 mEq/L (98-107); HEMATOCRIT. 23.5 % (42.0-52.0); HEMOGLOBIN. 7.7 g/dL (14.0-18.0); MEAN CORPUSCULAR HEMOGLOBIN 28.2 pg (28.0-32.0); MEAN CORPUSCULAR VOLUME 86.2 fL (80.0-94.0); MEAN PLATELET VOLUME 7.8 fl (7.4-10.4); PLATELET 424 x1000/uL (130-400); RED BLOOD CELL COUNT 2.72 mill/uL (4.7-6.1); RED CELL DISTRIBUTION WIDTH 18.2 % (11.6-14.6)
[2018-02-19 07:50] LABS: LDL CHOLESTEROL 72 mg/dL (5-100)
[2018-02-19 07:52] LABS: HDL CHOLESTEROL 35 mg/dL (40-59)
[2018-02-19 07:53] LABS: CREATINE KINASE 216 IU/L (39-308)
[2018-02-19 08:27] LABS: CLARITY URINE CLOUDY (CLEAR); COLOR URINE YELLOW (YELLOW); KETONES URINE TRACE (NEGATIVE); LEUKOCYTE ESTERASE URINE 3+ (NEGATIVE); NITRITE URINE NEGATIVE (NEGATIVE); OCCULT BLOOD URINE 2+ (NEGATIVE); PROTEIN URINE 2+ (NEGATIVE); SPECIFIC GRAVITY URINE 1.018 (1.005-1.030)
[2018-02-19 08:55] LABS: *COCAINE SCREEN URINE NEGATIVE (NEGATIVE)
[2018-02-19 09:02] LABS: *BENZODIAZEPINES SCREEN URINE NEGATIVE (NEGATIVE); METHADONE URINE SCREEN NEGATIVE (NEGATIVE)
[2018-02-19 09:03] LABS: CANNABINOID URINE SCREEN NEGATIVE (NEGATIVE)
[2018-02-19 09:05] LABS: *AMPHETAMINES SCREEN URINE NEGATIVE (NEGATIVE)
[2018-02-19 09:06] LABS: *BARBITURATES SCREEN URINE NEGATIVE (NEGATIVE)
[2018-02-19 09:10] LABS: OPIATES URINE SCREEN PRESUMTIVE POSITIVE (NEGATIVE)
[2018-02-19 09:13] LABS: PHENCYCLIDINE URINE SCREEN NEGATIVE (NEGATIVE)
[2018-02-19 11:10] LABS: PLATELET ESTIMATE SLIGHTLY INCREASED
[2018-02-19 11:31] LABS: TOTAL IRON BINDING CAPACITY 253 ug/dL (250-450)
[2018-02-19] MEDS ORDERED: LEVOFLOXACIN 500MG PREMIX 100 ML IV SCH (13:00)
[2018-02-19 15:27] LABS: CREATINE KINASE MB FRACTION 14.8 ng/mL (0.5-3.6)
[2018-02-19] MEDS: LEVOFLOXACIN 250MG PREMIX 50 ML IV SCH (17:31)
[2018-02-19] MEDS: FERROUS SULFATE 325MG TABLET PO SCH (17:31)
[2018-02-19] MEDS: IPRATROPIUM/ALBUTEROL 0.5-3(2.5)MG/3ML NEB INH SCH (20:11)
[2018-02-19] MEDS: SODIUM CHLORIDE 0.9% INJ 3ML FLUSH IVF SCH (22:50)
[2018-02-20] VITALS (12 sets, daily range): BP systolic 82–111; BP diastolic 42–77
[2018-02-20] MEDS: IPRATROPIUM/ALBUTEROL 0.5-3(2.5)MG/3ML NEB INH SCH ×3 (00:22→20:34)
[2018-02-20] MEDS: HYDROCODONE/ACETAMINOPHEN 5/325MG TABLET PO PRN ×3 (00:59→20:21)
[2018-02-20 06:02] LABS: CHLORIDE 104 mEq/L (98-107)
[2018-02-20 06:04] LABS: HEMOGLOBIN. 8.5 g/dL (14.0-18.0); MEAN CORPUSCULAR HEMOGLOBIN 27.2 pg (28.0-32.0); MEAN CORPUSCULAR VOLUME 86.2 fL (80.0-94.0); MEAN PLATELET VOLUME 7.5 fl (7.4-10.4); PLATELET 461 x1000/uL (130-400); RED BLOOD CELL COUNT 3.13 mill/uL (4.7-6.1); RED CELL DISTRIBUTION WIDTH 18.3 % (11.6-14.6)
[2018-02-20 06:20] LABS: LDL CHOLESTEROL 81 mg/dL (5-100)
[2018-02-20 06:21] LABS: CREATINE KINASE 305 IU/L (39-308); CREATINE KINASE MB FRACTION 16.1 ng/mL (0.5-3.6)
[2018-02-20 06:22] LABS: HDL CHOLESTEROL 33 mg/dL (40-59)
[2018-02-20] MEDS: SODIUM CHLORIDE 0.9% INJ 3ML FLUSH IVF SCH ×3 (06:26→21:01)
[2018-02-20] MEDS: FERROUS SULFATE 325MG TABLET PO SCH ×3 (08:03→16:54)
[2018-02-20 08:57] LABS: PLATELET ESTIMATE INCREASED
[2018-02-20] MEDS ORDERED: POTASSIUM CHLORIDE 20MEQ TABLET SR PO SCH (12:00)
[2018-02-20] MEDS ORDERED: LEVO500T2 MT (12:02)
[2018-02-20] MEDS ORDERED: FERR325T23 PO (12:02)
[2018-02-20] MEDS ORDERED: IPRA3AMP9 INH (12:02)
[2018-02-20 13:02] LABS: HEPATITIS B SURFACE ANTIGEN NEGATIVE
[2018-02-20 13:31] LABS: HEPATITIS A AB IGM NEGATIVE (NEGATIVE)
[2018-02-20] MEDS ORDERED: MIDO5TAB MT (16:41)
[2018-02-20] MEDS: MIDODRINE HCL 5MG TABLET PO SCH ×2 (16:54→16:59)
[2018-02-20] MEDS: LEVOFLOXACIN 250MG PREMIX 50 ML IV SCH (17:00)
[2018-02-20] MEDS ORDERED: ALBUMIN HUMAN 25GM/100ML (25%) IV NR (20:00)
[2018-02-21] VITALS (10 sets, daily range): BP systolic 114–148; BP diastolic 51–87
[2018-02-21] MEDS: IPRATROPIUM/ALBUTEROL 0.5-3(2.5)MG/3ML NEB INH SCH ×3 (01:50→13:25)
[2018-02-21] MEDS: SODIUM CHLORIDE 0.9% INJ 3ML FLUSH IVF SCH ×2 (06:26→14:46)
[2018-02-21] MEDS: FERROUS SULFATE 325MG TABLET PO SCH ×3 (08:02→17:20)
[2018-02-21] MEDS: MIDODRINE HCL 5MG TABLET PO SCH ×3 (08:02→17:00)
[2018-02-21] MEDS: LEVOFLOXACIN 250MG PREMIX 50 ML IV SCH (17:51)
== END 2018-02-21 19:21 | DRG 871 ==
LOC: ER 16:56 → EDBEDREQ 18:30 → 3WST 20:31 → EDBEDREQTM 20:36 → EDBEDREQ 20:36 → ENRESERV 21:29
PROVIDERS: ADMIT Family Medicine; ATTEND Family Medicine
DX: A41.9 Sepsis, unspecified organism (principal); I21.4 Non-ST elevation (NSTEMI) myocardial infarction; C34.90 Malignant neoplasm of unspecified part of unspecified bronchus or lung; N17.9 Acute kidney failure, unspecified; N39.0 Urinary tract infection, site not specified; I69.354 Hemiplegia and hemiparesis following cerebral infarction affecting left non-dominant side; I11.0 Hypertensive heart disease with heart failure; F03.90 Unspecified dementia, unspecified severity, without behavioral disturbance, psychotic disturbance, mood disturbance, and anxiety; K21.9 Gastro-esophageal reflux disease without esophagitis; D63.8 Anemia in other chronic diseases classified elsewhere; I50.9 Heart failure, unspecified; B96.89 Other specified bacterial agents as the cause of diseases classified elsewhere; I73.9 Peripheral vascular disease, unspecified; E78.00 Pure hypercholesterolemia, unspecified; H40.9 Unspecified glaucoma; I25.10 Atherosclerotic heart disease of native coronary artery without angina pectoris; I34.0 Nonrheumatic mitral (valve) insufficiency; N40.0 Benign prostatic hyperplasia without lower urinary tract symptoms; Z86.718 Personal history of other venous thrombosis and embolism; Z87.01 Personal history of pneumonia (recurrent); Z88.9 Allergy status to unspecified drugs, medicaments and biological substances; I25.2 Old myocardial infarction; Z93.1 Gastrostomy status; Z74.01 Bed confinement status; Z88.0 Allergy status to penicillin; Z88.8 Allergy status to other drugs, medicaments and biological substances; Z79.82 Long term (current) use of aspirin; Z79.899 Other long term (current) drug therapy
CPT/HCPCS: 36415; 71045; 76700; 80061; 80305; 82550; 82553; 82728; 83540; 83550; 83605; 83735; 83880; 84145; 84443; 84484; 85044; 85379; 86705; 86709; 86803; 87077; 87186; 87340; 93005; 94640; 96365; 96367; 99285; J1200; J1956; J3370; J7030; J7040; J7620; P9047

== ENCOUNTER 2018-03-04 17:05 | Inpatient (IN) | payer MEDICARE, MEDICAID ==
[~2018-03-04] VITALS: Ht 175.3 cm; Wt 92.2 kg
[~2018-03-04 17:05] MED LIST changes: +FERR325T23 PO; +IPRA3AMP9 INH; +LEVO500T2 MT; +MIDO5TAB MT
[2018-03-04 19:00] LABS: HEMATOCRIT. 23.2 % (42.0-52.0); HEMOGLOBIN. 7.4 g/dL (14.0-18.0); MEAN CORPUSCULAR HEMOGLOBIN 26.5 pg (28.0-32.0); MEAN CORPUSCULAR VOLUME 82.6 fL (80.0-94.0); MEAN PLATELET VOLUME 8.7 fl (7.4-10.4); PLATELET 234 x1000/uL (130-400); RED BLOOD CELL COUNT 2.81 mill/uL (4.7-6.1); RED CELL DISTRIBUTION WIDTH 18.5 % (11.6-14.6)
[2018-03-04 19:07] LABS: CHLORIDE 99 mEq/L (98-107)
[2018-03-04 19:10] LABS: ETHANOL BLOOD < 10 mg/dL
[2018-03-04 19:19] LABS: INR 1.5; PROTHROMBIN TIME 14.8 sec (9.1-11.1)
[2018-03-04 19:47] LABS: NUCLEATED RED BLOOD CELLS 2 /100 WBC; PLATELET ESTIMATE NORMAL
[2018-03-04 21:46] LABS: CLARITY URINE CLOUDY (CLEAR); COLOR URINE YELLOW (YELLOW); KETONES URINE NEGATIVE (NEGATIVE); LEUKOCYTE ESTERASE URINE 3+ (NEGATIVE); NITRITE URINE POSITIVE (NEGATIVE); OCCULT BLOOD URINE NEGATIVE (NEGATIVE); PROTEIN URINE NEGATIVE (NEGATIVE); SPECIFIC GRAVITY URINE 1.013 (1.005-1.030); UROBILINOGEN URINE 0.2 E.U./dL (0.2-1.0)
[2018-03-04 22:01] LABS: *AMPHETAMINES SCREEN URINE NEGATIVE (NEGATIVE); *BARBITURATES SCREEN URINE NEGATIVE (NEGATIVE)
[2018-03-04 22:02] LABS: *COCAINE SCREEN URINE NEGATIVE (NEGATIVE); METHADONE URINE SCREEN NEGATIVE (NEGATIVE); OPIATES URINE SCREEN NEGATIVE (NEGATIVE); PHENCYCLIDINE URINE SCREEN NEGATIVE (NEGATIVE)
[2018-03-04 22:03] LABS: *BENZODIAZEPINES SCREEN URINE NEGATIVE (NEGATIVE); CANNABINOID URINE SCREEN NEGATIVE (NEGATIVE)
[2018-03-04] MEDS ORDERED: CEFTRIAXONE 1 G PREMIX 50 ML IV ONE (22:30)
[2018-03-04] MEDS ORDERED: AZITHROMYCIN 500 MG in DEXT 5% WATER 250 ML IV ONE (22:30)
[2018-03-05] VITALS (13 sets, daily range): BP systolic 89–118; BP diastolic 39–69
[2018-03-05] MEDS ORDERED: ONDANSETRON HCL 4MG/2ML INJ IV PRN (01:30)
[2018-03-05] MEDS ORDERED: LORAZEPAM 2MG/ML CPJ IV PRN (01:30)
[2018-03-05] MEDS ORDERED: IPRATROPIUM/ALBUTEROL 0.5-3(2.5)MG/3ML NEB INH PRN (01:30)
[2018-03-05] MEDS ORDERED: CLONIDINE 0.1MG TABLET GT PRN (01:30)
[2018-03-05] MEDS ORDERED: LEVOFLOXACIN 250MG PREMIX 50 ML IV SCH ×2 (01:30→01:45)
[2018-03-05] MEDS: DEXT 5%/0.45% NACL 1000ML 1,000 ML IV SCH ×3 (02:21→15:17)
[2018-03-05] MEDS: LEVOTHYROXINE SODIUM 112MCG TABLET GT SCH (09:01)
[2018-03-05] MEDS: FAMOTIDINE 20MG/2ML VIAL IV SCH (09:01)
[2018-03-05 13:01] LABS: PHOSPHORUS 4.5 mg/dL (2.5-4.9)
[2018-03-05] MEDS: MIDODRINE HCL 5MG TABLET GT SCH ×2 (15:36→17:46)
[2018-03-06] VITALS (15 sets, daily range): BP systolic 86–118; BP diastolic 40–58
[2018-03-06] MEDS: LEVOFLOXACIN 250MG PREMIX 50 ML IV SCH ×2 (00:47→23:44)
[2018-03-06] MEDS: DEXT 5%/0.45% NACL 1000ML 1,000 ML IV SCH ×2 (00:48→14:32)
[2018-03-06] MEDS: MIDODRINE HCL 5MG TABLET GT SCH ×3 (09:19→17:20)
[2018-03-06] MEDS: FAMOTIDINE 20MG/2ML VIAL IV SCH (09:20)
[2018-03-06] MEDS: LEVOTHYROXINE SODIUM 112MCG TABLET GT SCH (09:20)
[2018-03-06 10:11] LABS: BG BASE EXCESS 1.3 mmol/L (-2.0-2.0); BG CARBOXYHEMOGLOBIN 0.8 % (0.5-1.5); BG DEOXYHEMOGLOBIN 20.5 % (0.0-5.0); BG FRACTION INSPIRED OXYGEN 36; BG HCO3 ACT 27.4 mmol/L (22.0-26.0); BG METHEMOGLOBIN 0.1 % (0.0-1.5); BG OXYGEN SATURATION 79.3 % (92.0-98.5); BG OXYHEMOGLOBIN 78.6 % (94.0-97.0); BG PCO2 52.4 mmHg (35.0-45.0); BG PH 7.337 (7.350-7.450); BG PO2 48.3 mmHg (75.0-100.0); BG SAMPLE SITE RIGHT RADIAL; BG TOTAL HEMOGLOBIN 7.8 g/dL (12.0-18.0); BG VENT MODE NASAL CANNULA
[2018-03-06] MEDS ORDERED: DEXT 5%/0.45% NACL 1000ML 1,000 ML IV SCH (14:40)
[2018-03-06 15:45] LABS: EOSINOPHILS % 1.1 % (0.0-5.0); HEMATOCRIT. 22.8 % (42.0-52.0); HEMOGLOBIN. 7.1 g/dL (14.0-18.0); LYMPHOCYTES % 15.2 % (20.0-50.0); MEAN CORPUSCULAR HEMOGLOBIN 25.8 pg (28.0-32.0); MEAN CORPUSCULAR VOLUME 82.7 fL (80.0-94.0); MEAN PLATELET VOLUME 8.8 fl (7.4-10.4); MONOCYTES % 10.6 % (2.0-8.0); NEUTROPHILS % 73.1 % (40.0-76.0); PLATELET 205 x1000/uL (130-400); RED BLOOD CELL COUNT 2.76 mill/uL (4.7-6.1); RED CELL DISTRIBUTION WIDTH 18.2 % (11.6-14.6)
[2018-03-06 20:10] LABS: BG BASE EXCESS 2.1 mmol/L (-2.0-2.0); BG CARBOXYHEMOGLOBIN 0.6 % (0.5-1.5); BG DEOXYHEMOGLOBIN 2.3 % (0.0-5.0); BG FRACTION INSPIRED OXYGEN 100; BG HCO3 ACT 29.3 mmol/L (22.0-26.0); BG METHEMOGLOBIN 0.5 % (0.0-1.5); BG OXYGEN SATURATION 97.7 % (92.0-98.5); BG OXYHEMOGLOBIN 96.6 % (94.0-97.0); BG PCO2 63.3 mmHg (35.0-45.0); BG PH 7.284 (7.350-7.450); BG PO2 112.4 mmHg (75.0-100.0); BG SAMPLE SITE RIGHT RADIAL; BG VENT MODE MASK - NRB
[2018-03-06] MEDS: IPRATROPIUM/ALBUTEROL 0.5-3(2.5)MG/3ML NEB HHN SCH (20:23)
[2018-03-06] MEDS ORDERED: METHYLPREDNISOLONE SOD SUCC 125 MG/2 ML VIAL IV NR (20:45)
[2018-03-07] VITALS (16 sets, daily range): BP systolic 110–145; BP diastolic 46–88
[2018-03-07] MEDS: IPRATROPIUM/ALBUTEROL 0.5-3(2.5)MG/3ML NEB HHN SCH ×4 (00:50→21:26)
[2018-03-07 07:22] LABS: BASOPHILS % 0.1 % (0.0-2.0); EOSINOPHILS % 0.1 % (0.0-5.0); HEMATOCRIT. 23.4 % (42.0-52.0); HEMOGLOBIN. 7.3 g/dL (14.0-18.0); LYMPHOCYTES % 10.5 % (20.0-50.0); MEAN CORPUSCULAR HEMOGLOBIN 25.7 pg (28.0-32.0); MEAN CORPUSCULAR VOLUME 82.5 fL (80.0-94.0); MONOCYTES % 1.7 % (2.0-8.0); NEUTROPHILS % 87.6 % (40.0-76.0); PLATELET 217 x1000/uL (130-400); RED BLOOD CELL COUNT 2.84 mill/uL (4.7-6.1); RED CELL DISTRIBUTION WIDTH 18.5 % (11.6-14.6)
[2018-03-07] MEDS: LEVOTHYROXINE SODIUM 112MCG TABLET GT SCH (08:27)
[2018-03-07] MEDS: MIDODRINE HCL 5MG TABLET GT SCH ×3 (08:40→17:31)
[2018-03-07] MEDS: FAMOTIDINE 20MG/2ML VIAL IV SCH (08:40)
[2018-03-07 09:37] LABS: BG BASE EXCESS 4.2 mmol/L (-2.0-2.0); BG BILEVEL POS AIRWAY PRESSURE 15/5; BG CARBOXYHEMOGLOBIN 1.7 % (0.5-1.5); BG FRACTION INSPIRED OXYGEN 45; BG HCO3 ACT 29.6 mmol/L (22.0-26.0); BG METHEMOGLOBIN 0.6 % (0.0-1.5); BG OXYHEMOGLOBIN 96.7 % (94.0-97.0); BG PH 7.382 (7.350-7.450); BG PO2 127.4 mmHg (75.0-100.0); BG SAMPLE SITE RIGHT RADIAL; BG VENT MODE MASK - BIPAP
[2018-03-07] MEDS: LEVOFLOXACIN 250MG PREMIX 50 ML IV SCH (23:22)
[2018-03-08] VITALS (14 sets, daily range): BP systolic 98–153; BP diastolic 29–79
[2018-03-08] MEDS: IPRATROPIUM/ALBUTEROL 0.5-3(2.5)MG/3ML NEB HHN SCH ×4 (02:17→19:56)
[2018-03-08] MEDS: FAMOTIDINE 20MG/2ML VIAL IV SCH (08:17)
[2018-03-08] MEDS: LEVOTHYROXINE SODIUM 112MCG TABLET GT SCH (08:18)
[2018-03-08] MEDS: MIDODRINE HCL 5MG TABLET GT SCH ×3 (08:18→17:14)
[2018-03-08 08:36] LABS: LYMPHOCYTES % 7.9 % (20.0-50.0); MEAN CORPUSCULAR HEMOGLOBIN 26.3 pg (28.0-32.0); MEAN PLATELET VOLUME 8.9 fl (7.4-10.4); MONOCYTES % 6.1 % (2.0-8.0); PLATELET 192 x1000/uL (130-400); RED BLOOD CELL COUNT 2.65 mill/uL (4.7-6.1); RED CELL DISTRIBUTION WIDTH 18.5 % (11.6-14.6)
[2018-03-08 08:37] LABS: HEMATOCRIT. 21.4 % (42.0-52.0)
[2018-03-09] VITALS (13 sets, daily range): BP systolic 103–138; BP diastolic 33–60
[2018-03-09] MEDS: IPRATROPIUM/ALBUTEROL 0.5-3(2.5)MG/3ML NEB HHN SCH ×4 (01:51→20:06)
[2018-03-09 06:01] LABS: EOSINOPHILS % 0.1 % (0.0-5.0); HEMATOCRIT. 22.6 % (42.0-52.0); HEMOGLOBIN. 7.1 g/dL (14.0-18.0); LYMPHOCYTES % 15.9 % (20.0-50.0); MEAN CORPUSCULAR HEMOGLOBIN 25.5 pg (28.0-32.0); MEAN CORPUSCULAR VOLUME 81.6 fL (80.0-94.0); MEAN PLATELET VOLUME 8.9 fl (7.4-10.4); MONOCYTES % 8.8 % (2.0-8.0); NEUTROPHILS % 75.2 % (40.0-76.0); PLATELET 204 x1000/uL (130-400); RED BLOOD CELL COUNT 2.77 mill/uL (4.7-6.1); RED CELL DISTRIBUTION WIDTH 18.7 % (11.6-14.6)
[2018-03-09] MEDS: MIDODRINE HCL 5MG TABLET GT SCH ×3 (10:21→18:53)
[2018-03-09] MEDS: FAMOTIDINE 20MG/2ML VIAL IV SCH (10:21)
[2018-03-09] MEDS: LEVOTHYROXINE SODIUM 112MCG TABLET GT SCH (10:21)
[2018-03-09 16:06] LABS: BG BASE EXCESS 4.5 mmol/L (-2.0-2.0); BG BILEVEL POS AIRWAY PRESSURE 15/5; BG CARBOXYHEMOGLOBIN 1.2 % (0.5-1.5); BG DEOXYHEMOGLOBIN 6.6 % (0.0-5.0); BG FRACTION INSPIRED OXYGEN 35; BG HCO3 ACT 29.4 mmol/L (22.0-26.0); BG METHEMOGLOBIN 0.2 % (0.0-1.5); BG OXYGEN SATURATION 93.3 % (92.0-98.5); BG PCO2 46.4 mmHg (35.0-45.0); BG PO2 70.4 mmHg (75.0-100.0); BG SAMPLE SITE RIGHT RADIAL; BG TOTAL HEMOGLOBIN 7.4 g/dL (12.0-18.0); BG VENT MODE MASK - BIPAP
[2018-03-09] MEDS: BUDESONIDE 0.5MG/2ML NEB HHN SCH (20:06)
[2018-03-09] MEDS: LEVOFLOXACIN 250MG PREMIX 50 ML IV SCH ×2 (23:19)
[2018-03-10] VITALS (14 sets, daily range): BP systolic 78–144; BP diastolic 39–106
[2018-03-10] MEDS: IPRATROPIUM/ALBUTEROL 0.5-3(2.5)MG/3ML NEB HHN SCH ×4 (03:31→20:08)
[2018-03-10 06:37] LABS: BASOPHILS % 0.1 % (0.0-2.0); EOSINOPHILS % 5.6 % (0.0-5.0); HEMATOCRIT. 22.7 % (42.0-52.0); HEMOGLOBIN. 7.2 g/dL (14.0-18.0); LYMPHOCYTES % 20.2 % (20.0-50.0); MEAN CORPUSCULAR HEMOGLOBIN 26.1 pg (28.0-32.0); MEAN CORPUSCULAR VOLUME 81.9 fL (80.0-94.0); MEAN PLATELET VOLUME 8.7 fl (7.4-10.4); MONOCYTES % 8.3 % (2.0-8.0); NEUTROPHILS % 65.8 % (40.0-76.0); PLATELET 198 x1000/uL (130-400); RED BLOOD CELL COUNT 2.77 mill/uL (4.7-6.1); RED CELL DISTRIBUTION WIDTH 18.9 % (11.6-14.6)
[2018-03-10 06:42] LABS: INR 1.4; PARTIAL THROMBOPLASTIN TIME 31.5 sec (23.4-31.0); PROTHROMBIN TIME 13.7 sec (9.1-11.1)
[2018-03-10] MEDS: BUDESONIDE 0.5MG/2ML NEB HHN SCH ×2 (07:55→20:08)
[2018-03-10] MEDS: LEVOTHYROXINE SODIUM 112MCG TABLET GT SCH (08:31)
[2018-03-10] MEDS: MIDODRINE HCL 5MG TABLET GT SCH ×3 (08:31→17:58)
[2018-03-10] MEDS: FAMOTIDINE 20MG/2ML VIAL IV SCH (08:31)
[2018-03-10] MEDS ORDERED: SODIUM BICARBONATE 4% (2.4MEQ) 5ML VIAL IV ONE (10:52)
[2018-03-10] MEDS ORDERED: LIDOCAINE HCL 1% 20ML VIAL (Pyxis) INJ ONE (10:52)
[2018-03-11] VITALS (13 sets, daily range): BP systolic 84–148; BP diastolic 34–99
[2018-03-11] MEDS: LEVOFLOXACIN 250MG TABLET GT SCH (00:53)
[2018-03-11] MEDS: IPRATROPIUM/ALBUTEROL 0.5-3(2.5)MG/3ML NEB HHN SCH ×4 (02:00→20:07)
[2018-03-11 07:16] LABS: BASOPHILS % 0.1 % (0.0-2.0); EOSINOPHILS % 3.8 % (0.0-5.0); HEMATOCRIT. 23.9 % (42.0-52.0); HEMOGLOBIN. 7.5 g/dL (14.0-18.0); LYMPHOCYTES % 17.5 % (20.0-50.0); MEAN CORPUSCULAR HEMOGLOBIN 25.7 pg (28.0-32.0); MEAN CORPUSCULAR VOLUME 81.7 fL (80.0-94.0); MEAN PLATELET VOLUME 8.7 fl (7.4-10.4); MONOCYTES % 7.2 % (2.0-8.0); NEUTROPHILS % 71.4 % (40.0-76.0); PLATELET 195 x1000/uL (130-400); RED BLOOD CELL COUNT 2.93 mill/uL (4.7-6.1)
[2018-03-11] MEDS: BUDESONIDE 0.5MG/2ML NEB HHN SCH ×2 (08:56→20:07)
[2018-03-11] MEDS: LEVOTHYROXINE SODIUM 112MCG TABLET GT SCH (09:03)
[2018-03-11] MEDS: MIDODRINE HCL 5MG TABLET GT SCH ×3 (09:03→17:35)
[2018-03-11] MEDS: FAMOTIDINE 20MG/2ML VIAL IV SCH (09:03)
[2018-03-11] MEDS: ACETAMINOPHEN 650MG/20.3ML UDC GT PRN (09:05)
[2018-03-11] MEDS: HYDROCODONE/ACETAMINOPHEN 5/325MG TABLET GT PRN ×2 (17:37→23:45)
[2018-03-12] VITALS (12 sets, daily range): BP systolic 91–133; BP diastolic 41–59
[2018-03-12] MEDS: IPRATROPIUM/ALBUTEROL 0.5-3(2.5)MG/3ML NEB HHN SCH ×4 (00:09→20:25)
[2018-03-12] MEDS: LEVOFLOXACIN 250MG TABLET GT SCH (02:37)
[2018-03-12] MEDS: HYDROCODONE/ACETAMINOPHEN 5/325MG TABLET GT PRN ×3 (06:32→17:44)
[2018-03-12 07:56] LABS: BASOPHILS % 0.1 % (0.0-2.0); EOSINOPHILS % 2.7 % (0.0-5.0); HEMATOCRIT. 23.6 % (42.0-52.0); HEMOGLOBIN. 7.4 g/dL (14.0-18.0); LYMPHOCYTES % 16.7 % (20.0-50.0); MEAN CORPUSCULAR HEMOGLOBIN 25.6 pg (28.0-32.0); MEAN CORPUSCULAR VOLUME 81.5 fL (80.0-94.0); MEAN PLATELET VOLUME 8.9 fl (7.4-10.4); MONOCYTES % 7.5 % (2.0-8.0); PLATELET 182 x1000/uL (130-400); RED CELL DISTRIBUTION WIDTH 19.1 % (11.6-14.6)
[2018-03-12] MEDS: LEVOTHYROXINE SODIUM 112MCG TABLET GT SCH (08:36)
[2018-03-12] MEDS: MIDODRINE HCL 5MG TABLET GT SCH ×3 (08:37→17:44)
[2018-03-12] MEDS: FAMOTIDINE 20MG/2ML VIAL IV SCH (08:37)
[2018-03-12] MEDS: BUDESONIDE 0.5MG/2ML NEB HHN SCH (08:59)
[2018-03-12] MEDS ORDERED: GENTAMICIN SULFATE 160 MG in SODIUM CHLORIDE 0.9% 100 ML IV NR (13:00)
[2018-03-13] VITALS (12 sets, daily range): BP systolic 98–142; BP diastolic 46–69
[2018-03-13] MEDS: HYDROCODONE/ACETAMINOPHEN 5/325MG TABLET GT PRN ×3 (01:36→13:30)
[2018-03-13] MEDS: IPRATROPIUM/ALBUTEROL 0.5-3(2.5)MG/3ML NEB HHN SCH ×4 (02:23→22:10)
[2018-03-13] MEDS: LEVOTHYROXINE SODIUM 112MCG TABLET GT SCH (06:37)
[2018-03-13] MEDS: GENTAMICIN 120MG PREMIX 100 ML IV SCH (08:10)
[2018-03-13] MEDS: FAMOTIDINE 20MG/2ML VIAL IV SCH (08:10)
[2018-03-13] MEDS: MIDODRINE HCL 5MG TABLET GT SCH ×3 (08:11→18:03)
[2018-03-13 08:20] LABS: BASOPHILS % 0.2 % (0.0-2.0); HEMATOCRIT. 22.6 % (42.0-52.0); HEMOGLOBIN. 7.1 g/dL (14.0-18.0); LYMPHOCYTES % 23.1 % (20.0-50.0); MEAN CORPUSCULAR HEMOGLOBIN 25.6 pg (28.0-32.0); MEAN CORPUSCULAR VOLUME 81.7 fL (80.0-94.0); MEAN PLATELET VOLUME 8.7 fl (7.4-10.4); MONOCYTES % 7.4 % (2.0-8.0); NEUTROPHILS % 66.3 % (40.0-76.0); PLATELET 172 x1000/uL (130-400); RED BLOOD CELL COUNT 2.76 mill/uL (4.7-6.1); RED CELL DISTRIBUTION WIDTH 18.8 % (11.6-14.6)
[2018-03-14] VITALS (11 sets, daily range): BP systolic 97–128; BP diastolic 25–63
[2018-03-14] MEDS: IPRATROPIUM/ALBUTEROL 0.5-3(2.5)MG/3ML NEB HHN SCH ×4 (02:10→20:44)
[2018-03-14] MEDS: GENTAMICIN 120MG PREMIX 100 ML IV SCH ×2 (04:03→21:31)
[2018-03-14] MEDS: LEVOTHYROXINE SODIUM 112MCG TABLET GT SCH (06:27)
[2018-03-14] MEDS: FAMOTIDINE 20MG/2ML VIAL IV SCH (09:32)
[2018-03-14] MEDS: MIDODRINE HCL 5MG TABLET GT SCH ×3 (09:34→17:59)
[2018-03-14] MEDS: HYDROCODONE/ACETAMINOPHEN 5/325MG TABLET GT PRN ×3 (09:36→21:35)
[2018-03-15] VITALS: BP 110/54
[2018-03-15] MEDS: IPRATROPIUM/ALBUTEROL 0.5-3(2.5)MG/3ML NEB HHN SCH ×4 (01:41→21:50)
[2018-03-15 04:00] VITALS: BP 119/59
[2018-03-15 08:00] VITALS: BP 104/59
[2018-03-15 08:19] LABS: BASOPHILS % 0.2 % (0.0-2.0); EOSINOPHILS % 0.1 % (0.0-5.0); HEMATOCRIT. 27.1 % (42.0-52.0); HEMOGLOBIN. 8.1 g/dL (14.0-18.0); LYMPHOCYTES % 7.8 % (20.0-50.0); MEAN CORPUSCULAR HEMOGLOBIN 24.8 pg (28.0-32.0); MEAN CORPUSCULAR VOLUME 82.7 fL (80.0-94.0); MONOCYTES % 4.2 % (2.0-8.0); NEUTROPHILS % 87.7 % (40.0-76.0); PLATELET 229 x1000/uL (130-400); RED BLOOD CELL COUNT 3.28 mill/uL (4.7-6.1); RED CELL DISTRIBUTION WIDTH 19.7 % (11.6-14.6)
[2018-03-15] MEDS: MIDODRINE HCL 5MG TABLET GT SCH ×3 (09:02→17:08)
[2018-03-15] MEDS: FAMOTIDINE 20MG/2ML VIAL IV SCH (09:02)
[2018-03-15] MEDS: LEVOTHYROXINE SODIUM 112MCG TABLET GT SCH (09:02)
[2018-03-15] MEDS: HYDROCODONE/ACETAMINOPHEN 5/325MG TABLET GT PRN ×2 (09:04→14:23)
[2018-03-15 12:00] VITALS: BP 95/51
[2018-03-15 16:00] VITALS: BP 92/63
[2018-03-15 20:00] VITALS: BP 104/49
[2018-03-16] VITALS (8 sets, daily range): BP systolic 89–119; BP diastolic 51–62
[2018-03-16] MEDS: IPRATROPIUM/ALBUTEROL 0.5-3(2.5)MG/3ML NEB HHN SCH ×3 (02:29→21:29)
[2018-03-16] MEDS: LEVOTHYROXINE SODIUM 112MCG TABLET GT SCH (06:45)
[2018-03-16] MEDS: FAMOTIDINE 20MG/2ML VIAL IV SCH (09:08)
[2018-03-16] MEDS: HYDROCODONE/ACETAMINOPHEN 5/325MG TABLET GT PRN ×2 (09:09→12:44)
[2018-03-16] MEDS: MIDODRINE HCL 5MG TABLET GT SCH ×3 (09:10→17:34)
[2018-03-16] MEDS ORDERED: GENTAMICIN 100MG PREMIX 50 ML IV SCH (09:30)
[2018-03-16] MEDS: METOCLOPRAMIDE HCL 10MG/2ML VIAL IV SCH ×3 (12:43→23:00)
[2018-03-16] MEDS ORDERED: SODIUM BICARBONATE 4% (2.4MEQ) 5ML VIAL IV ONE (15:15)
[2018-03-16] MEDS ORDERED: LIDOCAINE HCL 1% 20ML VIAL (Pyxis) INJ ONE (15:35)
[2018-03-16] MEDS ORDERED: BISACODYL 10MG SUPP PR NR (17:15)
[2018-03-16] MEDS: METRONIDAZOLE 500 MG PREMIX 100 ML IV SCH ×2 (17:35→23:00)
[2018-03-16 17:50] LABS: BASOPHILS % 0.1 % (0.0-2.0); HEMATOCRIT. 26.7 % (42.0-52.0); LYMPHOCYTES % 8.5 % (20.0-50.0); MEAN CORPUSCULAR VOLUME 83.1 fL (80.0-94.0); MEAN PLATELET VOLUME 8.7 fl (7.4-10.4); MONOCYTES % 5.9 % (2.0-8.0); NEUTROPHILS % 85.5 % (40.0-76.0); PLATELET 359 x1000/uL (130-400); RED BLOOD CELL COUNT 3.21 mill/uL (4.7-6.1)
[2018-03-16 18:19] LABS: INR 1.6; PROTHROMBIN TIME 16.2 sec (9.1-11.1)
[2018-03-16] MEDS: ACETAMINOPHEN 650MG/20.3ML UDC GT PRN (22:51)
[2018-03-16] MEDS: LACTULOSE 20G/30ML UDC GT SCH (22:51)
[2018-03-17] VITALS (68 sets, daily range): BP systolic 38–232; BP diastolic 12–121
[2018-03-17] MEDS ORDERED: NOREPINEPHRINE 8 MG in DEXT 5% WATER 250 ML IV PRN (00:45)
[2018-03-17] MEDS ORDERED: DEXTROSE 50% WATER 50ML SYRINGE IV ONE ×2 (00:45→15:42)
[2018-03-17 02:06] LABS: BG BASE EXCESS -19.7 mmol/L (-2.0-2.0); BG CARBOXYHEMOGLOBIN 0.9 % (0.5-1.5); BG DEOXYHEMOGLOBIN 0.2 % (0.0-5.0); BG FRACTION INSPIRED OXYGEN 100; BG HCO3 ACT 10.8 mmol/L (22.0-26.0); BG METHEMOGLOBIN 1.1 % (0.0-1.5); BG OXYGEN SATURATION 99.8 % (92.0-98.5); BG OXYHEMOGLOBIN 97.8 % (94.0-97.0); BG PCO2 48.5 mmHg (35.0-45.0); BG PEEP (cmH2O) 0 cmH2O; BG PH 6.967 (7.350-7.450); BG PIP 19 cmH2O; BG PO2 381.2 mmHg (75.0-100.0); BG SAMPLE SITE LEFT FEMORAL; BG TIDAL VOLUME(mL) 500 mL; BG TOTAL HEMOGLOBIN 7.9 g/dL (12.0-18.0); BG VENT MODE VENT - A/C; BG VENT RATE 14 set
[2018-03-17] MEDS ORDERED: SODIUM BICARBONATE 8.4% 1 MEQ/ML 50ML SYR IV NR ×2 (02:30→09:15)
[2018-03-17] MEDS ORDERED: PROPOFOL 10MG/ML 100ML 100 ML IV PRN (02:30)
[2018-03-17] MEDS: NOREPINEPHRINE 8 MG in DEXT 5% WATER 242 ML IV PRN ×2 (03:38→15:00)
[2018-03-17] MEDS: ACETYLCYSTEINE 100MG/ML 10% VIAL 4ML INH SCH ×2 (04:00→12:51)
[2018-03-17] MEDS: IPRATROPIUM/ALBUTEROL 0.5-3(2.5)MG/3ML NEB HHN SCH ×3 (04:00→12:52)
[2018-03-17] MEDS: LACTULOSE 20G/30ML UDC GT SCH ×2 (05:43→14:00)
[2018-03-17] MEDS: METOCLOPRAMIDE HCL 10MG/2ML VIAL IV SCH ×2 (05:44→12:00)
[2018-03-17] MEDS: PHENYLEPHRINE 20 MG in DEXT 5% WATER 248 ML IV PRN ×3 (06:21→11:56)
[2018-03-17 07:19] LABS: BASOPHILS % 0.3 % (0.0-2.0); EOSINOPHILS % 0.1 % (0.0-5.0); HEMATOCRIT. 27.3 % (42.0-52.0); HEMOGLOBIN. 7.8 g/dL (14.0-18.0); LYMPHOCYTES % 12.6 % (20.0-50.0); MEAN CORPUSCULAR HEMOGLOBIN 25.5 pg (28.0-32.0); MEAN PLATELET VOLUME 8.8 fl (7.4-10.4); MONOCYTES % 5.2 % (2.0-8.0); NEUTROPHILS % 81.8 % (40.0-76.0); PLATELET 231 x1000/uL (130-400); RED BLOOD CELL COUNT 3.07 mill/uL (4.7-6.1); RED CELL DISTRIBUTION WIDTH 20.2 % (11.6-14.6)
[2018-03-17] MEDS ORDERED: DEXTROSE 50% WATER 50ML SYRINGE IV PRN (08:30)
[2018-03-17] MEDS ORDERED: DEXT 5%/0.45% NACL 1000ML 1,000 ML IV SCH (08:30)
[2018-03-17] MEDS: BLOOD SUGAR DIAGNOSTIC STRIP TEST SCH ×2 (08:35→12:50)
[2018-03-17 09:07] LABS: BG BASE EXCESS -17.9 mmol/L (-2.0-2.0); BG CARBOXYHEMOGLOBIN 1.2 % (0.5-1.5); BG DEOXYHEMOGLOBIN 5.5 % (0.0-5.0); BG FRACTION INSPIRED OXYGEN 60; BG HCO3 ACT 12.1 mmol/L (22.0-26.0); BG METHEMOGLOBIN 0.3 % (0.0-1.5); BG OXYGEN SATURATION 94.4 % (92.0-98.5); BG PCO2 49.4 mmHg (35.0-45.0); BG PH 7.008 (7.350-7.450); BG PO2 110.3 mmHg (75.0-100.0); BG SAMPLE SITE RIGHT RADIAL; BG TIDAL VOLUME(mL) 500 mL; BG TOTAL HEMOGLOBIN 7.8 g/dL (12.0-18.0); BG VENT MODE VENT - A/C; BG VENT RATE 24 set
[2018-03-17] MEDS ORDERED: VASOPRESSIN 10 UNIT in SODIUM CHLORIDE 0.9% 99.5 ML IV PRN (09:30)
[2018-03-17] MEDS: METRONIDAZOLE 500 MG PREMIX 100 ML IV SCH (09:56)
[2018-03-17] MEDS ORDERED: LORAZEPAM 2MG/ML CPJ IV NR (10:00)
[2018-03-17] MEDS ORDERED: SODIUM BICARBONATE 150 MEQ in DEXTROSE 5% WATER 1,000 ML IV SCH (10:00)
[2018-03-17] MEDS: LEVOTHYROXINE SODIUM 112MCG TABLET GT SCH (11:30)
[2018-03-17] MEDS: MIDODRINE HCL 5MG TABLET GT SCH ×2 (11:30→13:00)
[2018-03-17] MEDS: FAMOTIDINE 20MG/2ML VIAL IV SCH (11:30)
[2018-03-17 12:42] LABS: BG CARBOXYHEMOGLOBIN 0.3 % (0.5-1.5); BG DEOXYHEMOGLOBIN 5.8 % (0.0-5.0); BG FRACTION INSPIRED OXYGEN 60; BG METHEMOGLOBIN 0.6 % (0.0-1.5); BG OXYGEN SATURATION 94.1 % (92.0-98.5); BG OXYHEMOGLOBIN 93.3 % (94.0-97.0); BG PCO2 39.8 mmHg (35.0-45.0); BG PH 7.061 (7.350-7.450); BG PO2 102.8 mmHg (75.0-100.0); BG SAMPLE SITE RIGHT BRACHIAL; BG TIDAL VOLUME(mL) 500 mL; BG VENT MODE VENT - A/C; BG VENT RATE 30 set
[2018-03-17] MEDS ORDERED: SODIUM BICARBONATE 8.4% 1 MEQ/ML 50ML SYR IV ONE ×2 (13:00→15:42)
[2018-03-17] MEDS ORDERED: INSULIN LISPRO 100 UNITS/ML SUBCUT SCH (13:20)
[2018-03-17] MEDS ORDERED: MORPHINE SULFATE 250 MG in DEXT 5% WATER 240 ML IV PRN (14:15)
[2018-03-17] MEDS ORDERED: LORAZEPAM 2MG/ML CPJ IV PRN (14:15)
[2018-03-17] MEDS ORDERED: CALCIUM CHLORIDE 1GM/10ML SYR IV ONE (15:42)
[2018-03-17] MEDS ORDERED: EPINEPHRINE 0.1MG/ML (1:10,000) 10ML SYR ONE (15:42)
== END 2018-03-17 15:35 | disposition expired | DRG 871 ==
LOC: ER 17:05 → 5EST 23:29 → EDBEDREQTM 03-05 01:28 → EDBEDREQSVC 03-05 01:28 → EDBEDREQDT 03-05 01:28 → EDBEDREQ 03-05 01:28 → ENRESERV 03-05 02:03 → CVICU 03-17 01:45
PROVIDERS: ADMIT Internal Medicine; ATTEND Internal Medicine
PROC: 5A09457 Assistance with Respiratory Ventilation, 24-96 Consecutive Hours, Continuous Positive Airway Pressure (ICD-10-PCS; 2018-03-06)
PROC: 0W993ZZ Drainage of Right Pleural Cavity, Percutaneous Approach (ICD-10-PCS; 2018-03-10)
PROC: 5A09357 Assistance with Respiratory Ventilation, Less than 24 Consecutive Hours, Continuous Positive Airway Pressure (ICD-10-PCS; 2018-03-10)
PROC: 0W993ZZ Drainage of Right Pleural Cavity, Percutaneous Approach (ICD-10-PCS; 2018-03-16)
PROC: 5A1945Z Respiratory Ventilation, 24-96 Consecutive Hours (ICD-10-PCS; principal; 2018-03-17)
PROC: 5A12012 Performance of Cardiac Output, Single, Manual (ICD-10-PCS; 2018-03-17)
PROC: 0BH18EZ Insertion of Endotracheal Airway into Trachea, Via Natural or Artificial Opening Endoscopic (ICD-10-PCS; 2018-03-17)
PROC: 06HM33Z Insertion of Infusion Device into Right Femoral Vein, Percutaneous Approach (ICD-10-PCS; 2018-03-17)
DX: A41.9 Sepsis, unspecified organism (principal); G93.41 Metabolic encephalopathy; E43 Unspecified severe protein-calorie malnutrition; J18.9 Pneumonia, unspecified organism; J96.01 Acute respiratory failure with hypoxia; N39.0 Urinary tract infection, site not specified; N17.9 Acute kidney failure, unspecified; I69.354 Hemiplegia and hemiparesis following cerebral infarction affecting left non-dominant side; E87.2 Acidosis; G93.1 Anoxic brain damage, not elsewhere classified; J44.0 Chronic obstructive pulmonary disease with (acute) lower respiratory infection; I13.0 Hypertensive heart and chronic kidney disease with heart failure and stage 1 through stage 4 chronic kidney disease, or unspecified chronic kidney disease; D64.9 Anemia, unspecified; B96.20 Unspecified Escherichia coli [E. coli] as the cause of diseases classified elsewhere; E03.9 Hypothyroidism, unspecified; E78.00 Pure hypercholesterolemia, unspecified; E78.5 Hyperlipidemia, unspecified; F03.90 Unspecified dementia, unspecified severity, without behavioral disturbance, psychotic disturbance, mood disturbance, and anxiety; G25.3 Myoclonus; G89.29 Other chronic pain; I25.10 Atherosclerotic heart disease of native coronary artery without angina pectoris; I46.9 Cardiac arrest, cause unspecified; I50.9 Heart failure, unspecified; K21.9 Gastro-esophageal reflux disease without esophagitis; N18.9 Chronic kidney disease, unspecified; R13.10 Dysphagia, unspecified; I73.9 Peripheral vascular disease, unspecified; R62.7 Adult failure to thrive; L89.159 Pressure ulcer of sacral region, unspecified stage; Z68.30 Body mass index [BMI] 30.0-30.9, adult; Z88.0 Allergy status to penicillin; Z88.8 Allergy status to other drugs, medicaments and biological substances; I25.2 Old myocardial infarction; Z85.118 Personal history of other malignant neoplasm of bronchus and lung; Z86.718 Personal history of other venous thrombosis and embolism; Z87.01 Personal history of pneumonia (recurrent); Z93.1 Gastrostomy status; Z88.1 Allergy status to other antibiotic agents
CPT/HCPCS: 32555; 36415; 36600; 71045; 74018; 80048; 80051; 80170; 80305; 82040; 82140; 82270; 82375; 82550; 82805; 82962; 83540; 83550; 83605; 83615; 83735; 84100; 84134; 84443; 86850; 86900; 87077; 87186; 88108; 88312; 92950; 93005; 94002; 94003; 94640; 94660; 96365; 96366; 96367; 96368; 99285; A6261; G0482; J0456; J0696; J1580; J1956; J2060; J2370; J2405; J2765; J2930; J3490; J7050; J7060; J7070; J7608; J7620; J7626